=== PATIENT | male | born 1975 | race Caucasian/White ===

== ENCOUNTER 2017-03-04 18:08 | Inpatient (IN) ==
[2017-03-04] MEDS ORDERED: Vancomycin 1,500 MG in D5% in Water 250 ML IVPB ONE (19:35)
[2017-03-04] MEDS ORDERED: Piperacillin/Tazobactam 4.5 GM in D5% in Water (Mini-Bag+) 100 ML IVPB ONE (19:35)
[2017-03-04 19:49] LABS: Basophils % 0.1 %; Eosinophils % 0.1 %; Hematocrit 33.6 % (37.5-50.1); Hemoglobin 10.7 g/dL (12.9-16.9); Lymphocytes # 1.1 K/mcL (0.6-4.6); Lymphocytes % 6.5 %; Mean Corpuscular HGB Conc 31.8 g/dL (31.6-35.5); Mean Corpuscular Hemoglobin 28.5 pg (28.0-33.3); Mean Corpuscular Volume 89.4 fL (83.0-100.0); Monocytes # 1.1 K/mcL (0.0-1.3); Monocytes % 6.4 %; Neutrophils # 14.6 K/mcL (1.6-8.9); Platelet Count 455 K/mcL (140-400); Red Blood Count 3.76 M/mcL (4.19-5.50); Red Cell Distribution Width 14.2 % (11.5-14.5); Segmented Neutrophils % 85.9 %
[2017-03-04 19:55] LABS: INR 1.6; Prothrombin Time 17.9 Seconds (9.4-12.1)
[2017-03-04 19:57] LABS: Activated Partial Thrombo Time 35.5 Seconds (26.0-36.0)
[2017-03-04 20:02] LABS: BUN/Creatinine Ratio 10 (6-26); Blood Urea Nitrogen 10 mg/dL (8-26); Calcium 9.1 mg/dL (8.6-10.8); Carbon Dioxide 24 mEq/L (19-29); Chloride 98 mEq/L (98-109); Glucose 109 mg/dL (70-99); Osmolality,Calculated 274 (280-300); Potassium 4.2 mEq/L (3.5-4.5); Sodium 132 mEq/L (136-145); eGFR For African Americans > 60 (> 60); eGFR For Non-African Americans > 60 (> 60)
[2017-03-04] MEDS: 0.9 % Sodium Chloride 1,000 ML IVC SCH ×2 (20:08→22:10)
--- NOTE | 2017-03-04 20:30 | Emergency Department Note ---
Disposition Clinical Impression: Empyema lung Leukocytosis Qualifiers: Leukocytosis type: unspecified Qualified Code(s): D72.829 - Elevated white blood cell count, unspecified Anemia Qualifiers: Anemia type: unspecified type Qualified Code(s): D64.9 - Anemia, unspecified Disposition: Admitted As Inpatient Condition: Fair General Adult HPI - General Chief complaint: ED GI Bleed Stated complaint: coughing up blood// dark blood Time Seen by Provider: 03/04/17 19:02 Source: patient Limitations: no limitations Nursing Notes Reviewed: Yes Vital Signs Reviewed: Yes - History of Present Illness HPI Narrative: Patient was diagnosed with pneumonia about 5 weeks ago and started on Levaquin and I did review this record. He is not currently taking antibiotics but did have repeat CT scan on February 20 and this did show what looks like a loculated effusion. The patient is set to see pulmonary next week but came in today because he is now having hemoptysis. This occurred at home. It is blood- streaked and has not gross hemoptysis. He did not go to work today. He does have complaint of fever and this has been occurring intermittently for the last 5 weeks. He also has complaint of some lightheaded dizziness presently with coughing. He does have shortness of breath but this is not significantly changed. He denies any blurred vision, rhinorrhea. Does have intermittent sneezing. No blood in the urine or stool. No pain or numbness of the extremities, no skin rash or bruising of the skin. Social history: Nonsmoker, prior to his diagnosis of pneumonia 5 weeks ago is drinking between 2 and 6 beers per day. No drugs. Is here with his mother and the mother's Pain Scale: 0 - Related Data Home Medications Medication Instructions Recorded Confirmed No Known Home Drugs 03/04/17 03/04/17 Allergies Allergy/AdvReac Type Severity Reaction Status Date / Time Sulfa (Sulfonamide Allergy Hives Verified 03/04/17 18:47 Antibiotics) Review of Systems: He also has complaint of some lightheaded dizziness presently with coughing. He does have shortness of breath but this is not significantly changed. He denies any blurred vision, rhinorrhea. Does have intermittent sneezing. No blood in the urine or stool. No pain or numbness of the extremities, no skin rash or bruising of the skin. Past Medical History - Past Medical History Medical history: Reports: other Psychiatric history: Reports: no psych history - Social History Smoking Status: Never smoker Smokeless Tobacco Status: No Alcohol use: Reports: rarely Drug use: Reports: none Physical Exam CONSTITUTIONAL: Alert and oriented X3, well-nourished, well appearing, in no apparent distress HEAD: Normocephalic; atraumatic. EYES: PERRL, no scleral icterus. NOSE: The nose is normal in appearance without rhinorrhea RESP: Normal chest excursion with respiration; breath sounds clear and equal bilaterally; no wheezes, rhonchi, or rales CARD: Regular rhythm, without murmurs, rub or gallop ABD: Non-distended; non-tender, soft,without rigidity, rebound or guarding SKIN: Normal for age and race; warm and dry; no apparent lesions EXTREMITIES: Pulses are 2 plus and equal times 4 extremities, no peripheral edema or calf muscle pain. - General Limitations: no limitations General appearance: alert Course Vital Signs Temperature 103.0 F H 03/04/17 18:43 Pulse Rate 118 03/04/17 18:43 Respiratory Rate 18 03/04/17 18:43 Blood Pressure 159/94 03/04/17 18:43 O2 Sat by Pulse Oximetry 99 03/04/17 18:43 Temperature 103.0 F H 03/04/17 18:43 Pulse Rate 107 03/04/17 22:01 Respiratory Rate 14 03/04/17 22:55 Blood Pressure 139/80 03/04/17 22:55 O2 Sat by Pulse Oximetry 96 03/04/17 22:01 Oxygen Delivery Oxygen Delivery Room Air Medical Decision Making - [facility] Narrative Medical decision making narrative: The patient's symptoms are concerning in light of the CT scan from February 20. I will not repeat the CT today but would recommend consideration of interventional radiology consultation tomorrow for drainage and cultures. I did start the patient on broad-spectrum antibiotics with Zosyn and vancomycin. No history of intravenous drug use. I did review the labs showing elevated white blood cell count. Temperature here is 103 degrees. Ibuprofen and acetaminophen will be given. 2031 I did review the patient's labs and he does have leukocytosis. The patient is started on Zosyn and vancomycin and I did review his labs and second chest x- ray and I did speak with Dr. Agrawal from cardiothoracic who would like the patient admitted. No indication for surgical or interventional procedures tonight. CT scan can be done tonight or in the morning and they will follow this up tomorrow. We did do a CT scan tonight I did follow the results. Patient will be admitted. 2310 Did speak with hospitalist doctor who except the patient for admission 2313 - Medical Records Medical records reviewed: Yes I reviewed the patient's medical records. - Lab Data Lab results reviewed: Yes I reviewed the patient's lab results. Result diagrams: 03/04/17 19:37 03/04/17 19:37 Lab Results 03/04/17 03/04/17 03/04/17 Range/Units 19:37 19:37 19:37 WBC 17.0 H (4.3-11.1) K/mcL RBC 3.76 L (4.19-5.50) M/mcL Hgb 10.7 L (12.9-16.9) g/dL Hct 33.6 L (37.5-50.1) % MCV 89.4 (83.0-100.0) fL MCH 28.5 (28.0-33.3) pg MCHC 31.8 (31.6-35.5) g/dL RDW 14.2 (11.5-14.5) % Plt Count 455 H (140-400) K/mcL MPV 10.0 (9.4-12.4) fL Immature Gran % 1.0 (0-4) % Seg Neutrophils % 85.9 % Lymphocytes % 6.5 % Monocytes % 6.4 % Eosinophils % 0.1 % Basophils % 0.1 % Neutrophils # 14.6 H (1.6-8.9) K/mcL Lymphocytes # 1.1 (0.6-4.6) K/mcL Monocytes # 1.1 (0.0-1.3) K/mcL Eosinophils # 0.0 (0.0-0.6) K/mcL Basophils # 0.0 (0.0-0.2) K/mcL PT 17.9 H (9.4-12.1) Seconds INR 1.6 APTT 35.5 (26.0-36.0) Seconds Sodium 132 L (136-145) mEq/L Potassium 4.2 (3.5-4.5) mEq/L Chloride 98 (98-109) mEq/L Carbon Dioxide 24 (19-29) mEq/L BUN 10 (8-26) mg/dL Creatinine 0.98 (0.72-1.25) mg/dL Est GFR ( Amer) > 60 (> 60) Est GFR (Non-Af Amer) > 60 (> 60) BUN/Creatinine Ratio 10 (6-26) Glucose 109 H (70-99) mg/dL Calculated Osmolality 274 L (280-300) Lactic Acid (0.5-2.2) mmol/L Calcium 9.1 (8.6-10.8) mg/dL 03/04/17 Range/Units 19:37 WBC (4.3-11.1) K/mcL RBC (4.19-5.50) M/mcL Hgb (12.9-16.9) g/dL Hct (37.5-50.1) % MCV (83.0-100.0) fL MCH (28.0-33.3) pg MCHC (31.6-35.5) g/dL RDW (11.5-14.5) % Plt Count (140-400) K/mcL MPV (9.4-12.4) fL Immature Gran % (0-4) % Seg Neutrophils % % Lymphocytes % % Monocytes % % Eosinophils % % Basophils % % Neutrophils # (1.6-8.9) K/mcL Lymphocytes # (0.6-4.6) K/mcL Monocytes # (0.0-1.3) K/mcL Eosinophils # (0.0-0.6) K/mcL Basophils # (0.0-0.2) K/mcL PT (9.4-12.1) Seconds INR APTT (26.0-36.0) Seconds Sodium (136-145) mEq/L Potassium (3.5-4.5) mEq/L Chloride (98-109) mEq/L Carbon Dioxide (19-29) mEq/L BUN (8-26) mg/dL Creatinine (0.72-1.25) mg/dL Est GFR ( Amer) (> 60) Est GFR (Non-Af Amer) (> 60) BUN/Creatinine Ratio (6-26) Glucose (70-99) mg/dL Calculated Osmolality (280-300) Lactic Acid 1.1 (0.5-2.2) mmol/L Calcium (8.6-10.8) mg/dL - Radiology Data Radiology results reviewed: Yes I reviewed the patient's radiology results.
[2017-03-04] MEDS ORDERED: Ibuprofen 600 MG TABLET PO ONE ×2 (20:32→21:24)
--- NOTE | 2017-03-04 23:24 | Internal Med History&Physical ---
<Cornelio Jackman - Last Filed: 03/05/17 02:36> Date of Encounter: 03/05/17 Time of Encounter: 23:24 Assessment and Plan (1) Lung abscess Current visit: Yes Status: Acute As demonstrated on chest CT which showed interval enlargement as compared to 02/[address] surgery and interventional radiology for placement of chest tube; CT surgeon was already contacted while in ED Obtain pleural fluid studies including cell count w/ diff, gram stain/culture, pH Will start on Levaquin, Vancomycin, and Zosyn for broad coverage Sputum sample was collected but showed contaminants; will await blood cultures NPO at midnight, will support with IVF and oxygen/breathing treatments as needed Qualifiers: Pulmonary abscess pneumonia presence: with pneumonia Laterality: left Lung location: lower lobe of lung Qualified Code(s): J85.1 - Abscess of lung with pneumonia (2) Leukocytosis Current visit: Yes Status: Acute Secondary to infectious process as above Will support with IVF hydration and antibiotics Qualifiers: Leukocytosis type: unspecified Qualified Code(s): D72.829 - Elevated white blood cell count, unspecified (3) Anemia Current visit: Yes Status: Acute Secondary to hemoptysis in setting of lung abscess/possible empyema Hb of 10 upon admission; last visit was 15 No urgent need for transfusion at this time, but will type and screen Qualifiers: Anemia type: unspecified type Qualified Code(s): D64.9 - Anemia, unspecified (4) Alcohol abuse Current visit: Yes Status: Acute Start on CIWA protocol (5) DVT prophylaxis Current visit: Yes Status: Acute SCDs in setting of hemoptysis and anemia Internal Medicine - H&P: HPI Chief complaint: hemoptysis Admitted From: Home Plans for Post Hospital Care: Home History of present illness: Mr. Mccord is a 41 year old male who presents to the emergency department with hemoptysis and shortness of breath on exertion. He reports no significant medical history, and only takes a multivitamin. 5 weeks ago, he was diagnosed with community acquired pneumonia and completed a seven-day course of Levaquin. He states that he was feeling well up until yesterday when he developed hemoptysis, nausea, vomiting early in the morning. He states that there was a significant amount of blood was mixed with green sputum when he was coughing. He states that this happened again later in the day. Patient also reports having a fever that started earlier today and took his temperature at home which read 100.3. He denies any chest pain, lightheadedness, chills, diarrhea, constipation. 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 He denies any drug use other than marijuana and states that he drinks usually 2 beers a day after work, but has not drank in 2 weeks. Past Med Surg Social Fam HX - Past Medical History Medical history: other Psychiatric history: no psych history - Social History Smoking Status: Never smoker Smokeless Tobacco Status: No Alcohol use: rarely Drug use: none Internal Medicine - H&P: Meds No Known Home Drugs 03/04/17 [History] Allergies Sulfa (Sulfonamide Antibiotics) Allergy (Verified 03/04/17 18:47) Hives All Systems PM: A 10-system review of systems was performed and is negative for pertinent findings except as documented above in the HPI. - Constitutional Constitutional: fever(s), no chills, no night sweats - EENT Eyes: no change in vision, no discharge, no pain, no photophobia Ears: no ear discharge, no ear pain, no tinnitus Nose, mouth and throat: no dysphagia, no nasal discharge, no neck pain, no sore throat - Cardiovascular Cardiovascular ROS IM: dyspnea on exertion, no chest pain, no diaphoresis, no dyspnea, no lightheadedness, no palpitations, no syncope - Respiratory Respiratory: dyspnea on exertion, excessive phlegm production, change in phlegm color, no cough, no dyspnea, no wheezing - Gastrointestinal Gastrointestinal: diarrhea, nausea, vomiting, no abdominal pain, no hematemesis , no hematochezia, no melena - Musculoskeletal Musculoskeletal ROS IM: no numbness, no tingling - Integumentary Integumentary IM: no rash, no unusual bruising - Neurological Neurological ROS: no confusion, no convulsions, no focal weakness, no numbness, no tingling, no tremor(s) - Constitutional Vitals: Temp Pulse Resp BP Pulse Ox 103.0 F H 107 14 139/80 96 03/04/17 18:43 03/04/17 22:01 03/04/17 22:55 03/04/17 22:55 03/04/17 22:01 General appearance: Present: cooperative, pleasant, no acute distress, answers questions appropriately Exam: diaphoretic - Head Head exam: Present: atraumatic, normocephalic - Eye Eye exam: Present: PERRL, conjuntiva pink, sclera anicteric - Neck Neck exam general surgery: Present: supple, trachea midline. Absent: lymphadenopathy - Respiratory Respiratory exam: Present: decreased breath sounds (left lower lobe, with dullness to percussion). Absent: accessory muscle use, rales, rhonchi, wheezes - Cardiovascular Cardiovascular exam: Present: +S1, +S2, tachycardia (regular rhythm). Absent: diastolic murmur, gallop, rubs, systolic murmur - GI/Abdominal GI/Abdominal exam: Present: normal bowel sounds, soft, no peritoneal signs. Absent: distended, tenderness - Extremities Exam Extremities exam: Present: warm, radial pulses palpable and symetrical. Absent : calf tenderness, cyanotic, pedal edema - Neurological Exam Neurological exam: Present: alert, no focal deficits. Absent: facial droop, speech deficit - Skin Skin exam: Present: diaphoretic, intact Internal Med - H&P Results - Labs CBC & Chem 7: 03/04/17 19:37 03/04/17 19:37 <Zeeshan Pinon - Last Filed: 03/05/17 03:01> Date of Encounter: 03/05/17 Past Med Surg Social Fam HX - Past Surgical History Surgical History: no surgical history - Social History Occupational status: employed Current living situation: Home Activity Level: Independent ambulation - Additional Family History Additional family history: No FH of lung disease -- COPD, asthma, CF - Constitutional Constitutional: fatigue, fever(s) - EENT Nose, mouth and throat: no nasal congestion, no sinus pain - Cardiovascular Cardiovascular ROS IM: dyspnea on exertion, no chest pain, no edema - Respiratory Respiratory: hemoptysis (blood tinged sputum), dyspnea on exertion, chest congestion, excessive phlegm production, change in phlegm color - Genitourinary Genitourinary ROS male: no dysuria, no flank pain, no hematuria - Musculoskeletal Musculoskeletal ROS IM: no arthralgias, no atrophy, no back pain - Integumentary Integumentary IM: no rash - Neurological Neurological ROS: no focal weakness, no frequent falls - Psychiatric Psychiatric: no anxiety, no depression - Endocrine Endocrine IM: no cold intolerance, no heat intolerance - Hematologic/Lymphatic Hematologic/Lymphatic: no lymphadenopathy - Allergic/Immunologic Allergic/Immunologic: wheezing, no GI upset with certain foods - Constitutional Vitals: Temp Pulse Resp BP Pulse Ox 103.0 F H 84 14 139/80 96 03/04/17 18:43 03/05/17 00:58 03/04/17 22:55 03/04/17 22:55 03/04/17 22:01 General appearance: Present: cooperative, A&O X 3, pleasant, no acute distress, answers questions appropriately - Head Head exam: Present: normal inspection - Eye Eye exam: Present: PERRL. Absent: scleral icterus - ENT ENT exam: Present: mucous membranes dry, normal exam - Neck Neck exam general surgery: Present: full ROM, supple. Absent: tenderness - Respiratory Respiratory exam: Present: decreased breath sounds, rales (faint crackles right base). Absent: chest wall tenderness, prolonged expiratory phase, respiratory distress - Cardiovascular Cardiovascular exam: Present: RRR, +S1, +S2. Absent: diastolic murmur, systolic murmur - GI/Abdominal GI/Abdominal exam: Present: soft. Absent: hepatomegaly, splenomegaly, tenderness - Extremities Exam Extremities exam: Present: full ROM. Absent: calf tenderness - Back Exam Back exam: Present: full ROM. Absent: CVA tenderness (L), CVA tenderness (R) - Neurological Exam Neurological exam: Present: alert, oriented X3, no focal deficits - Psychiatric Psychiatric exam: Present: normal affect, normal mood - Skin Skin exam: Present: warm. Absent: rash Internal Med - H&P Results - Labs CBC & Chem 7: 03/04/17 19:37 03/04/17 19:37 - Diagnostic Studies Chest x-ray Status: image reviewed by me (LLL effusion with air-fluid level) CT scan - chest Status: image reviewed by me (left lower lung abscess) - Attending Attestation I discussed the TANANA, PMH, ROS, lab data, and exam findings with Dr. Jackman. I then saw and examined patient independently as well. I discussed the patient with ER staff at length prior to our assessments. I requested CT of chest with possible thoracentesis and/or chest tube in ER. I reviewed CT findings with ER and ER staff discussed with CT surgery (Dr. Agrawal). Dr. Agrawal will see patient this morning and recommended chest tube placement per IR later today. Upon my assessment of patient, his fevers have deferevesced, and he feels much better. I personally reviewed his CXR and CT chest. He has a lung abscess and/ or locluated effusion. He will likely need intervention with chest tube and possibly further thoracic surgery thereafter. He has failed outpatient therapy and warrants inpatient admission. Blood cultures have been collected, but his sputum sample is contaminated. We will request pleural fluid be sent for microbiology studies as well as routine analysis. Once an organism is isolated on culture results and patient improves, we will de-escalate antibiotics. Given his history of alcohol use and possible abuse, I am concerned about aspiration. However, his abscess is in his left lung and less suggestive of an aspiration process. I agree with [facility] protocol to monitor for possible withdrawal. Other than my comments noted above and exam findings, I agree with Dr. Jackman's assessment and plan.
[2017-03-04] MEDS ORDERED: Naloxone 0.4 MG/ML INJ IVP PRN (23:44)
[2017-03-04] MEDS ORDERED: Acetaminophen 325 MG TABLET PO PRN (23:44)
[2017-03-04] MEDS ORDERED: Ondansetron ODT 4 MG TAB.RAPDIS SL PRN (23:44)
[2017-03-04] MEDS ORDERED: Vancomycin 1,500 MG in D5% in Water 250 ML IVPB SCH (23:45)
[2017-03-04] MEDS ORDERED: 0.9 % Sodium Chloride 1,000 ML IVC SCH (23:45)
[2017-03-04] MEDS ORDERED: Ipratropium/Albuterol Neb 3 ML IH PRN (23:59)
[2017-03-05] MEDS ORDERED: *HR* LORazepam 2 MG/ML VIAL IVP PRN ×3 (02:33)
[2017-03-05] MEDS: Piperacillin/Tazobactam 3.375 GM in D5% in Water (Mini-Bag+) 100 ML IVPB SCH ×3 (03:40→23:08)
[2017-03-05 05:36] LABS: Basophils % 0.1 %; Eosinophils % 0.1 %; Hematocrit 30.7 % (37.5-50.1); Immature Granulocytes % 1.1 % (0-4); Lymphocytes # 1.3 K/mcL (0.6-4.6); Lymphocytes % 8.2 %; Mean Corpuscular HGB Conc 32.6 g/dL (31.6-35.5); Mean Corpuscular Hemoglobin 29.3 pg (28.0-33.3); Mean Platelet Volume 10.1 fL (9.4-12.4); Monocytes # 1.1 K/mcL (0.0-1.3); Monocytes % 6.8 %; Neutrophils # 13.3 K/mcL (1.6-8.9); Platelet Count 368 K/mcL (140-400); Red Blood Count 3.41 M/mcL (4.19-5.50); Red Cell Distribution Width 14.5 % (11.5-14.5); Segmented Neutrophils % 83.7 %
[2017-03-05 05:54] LABS: BUN/Creatinine Ratio 10 (6-26); Blood Urea Nitrogen 9 mg/dL (8-26); Calcium 8.7 mg/dL (8.6-10.8); Carbon Dioxide 26 mEq/L (19-29); Chloride 105 mEq/L (98-109); Glucose 102 mg/dL (70-99); Osmolality,Calculated 285 (280-300); Potassium 4.4 mEq/L (3.5-4.5); Sodium 138 mEq/L (136-145); eGFR For African Americans > 60 (> 60); eGFR For Non-African Americans > 60 (> 60)
--- NOTE | 2017-03-05 08:44 | Cardiothoracic Consult Note ---
Date of Encounter: 03/05/17 Time of Encounter: 08:41 Assessment and Plan (1) Lung abscess Current Visit: Yes Status: Acute The patient is a 41-year-old otherwise healthy man with a two-month history of a left lower lobe pneumonia. Initially he was treated with oral antibiotics for one week and had improvement of his symptoms. Unfortunately, the symptoms recurred approximately 2 weeks ago and yesterday the patient experienced hemoptysis. A repeat chest x-ray revealed a worsening left lower lobe infiltrative process and the chest CT revealed a large left lower lobe thick- walled abscess. The patient has been admitted for antibiotic therapy. Concur with this recommendation. Currently, there is no indication for operative intervention, unless the patient undergoes a transbronchial abscess drainage procedure. Placement of a chest tube into the abscess will cause an empyema if appearing material cannot be completely drained. I would refrain from this procedure and give the antibiotic therapy time to resolve the process. He should have serial chest x-rays to monitor his progress. The assessment and plan as outlined above was discussed with the patient and/or family members who expressed understanding and agreement. All questions were answered. Qualifiers: Pulmonary abscess pneumonia presence: with pneumonia Laterality: left Lung location: lower lobe of lung Qualified Code(s): J85.1 - Abscess of lung with pneumonia - History of Present Illness Consult date: 03/04/17 Requesting physician: Zeeshan Pinon Consult reason: Left lower lobe lung abscess Chief complaint: Fever and hemoptysis History of present illness: Mr. Mccord is a 41 year otherwise healthy man who developed a community- acquired pneumonia on January 27, 2017. Initially, patient complained of left posterior back pain and thought that he had fractured a rib. He was evaluated at an urgent care facility and the x-ray revealed a left lower lobe infiltrative process. The patient was placed on oral antibiotics for one week and had improvement of the symptoms. However, the patient redeveloped fevers approximately 2 weeks ago and yesterday began experiencing hemoptysis. This was described as blood mixed with green sputum. He was evaluated at [facility] or he was found to have a worsening left lower lobe infiltrative process. A chest CT revealed a large left lower lobe abscess with no apparent communication with the left pleural space. He was admitted for intravenous antibiotic therapy. Past Med Surg Social Fam HX - Past Medical History Medical history: other (Left lower lobe pneumonia.) Psychiatric history: no psych history - Past Surgical History Surgical History: other (Excision of right groin cyst.) - Social History Smoking Status: Never smoker Smokeless Tobacco Status: No Alcohol use: rarely Drug use: none Occupational status: employed Current living situation: Home - Independent Activity Level: Independent ambulation Recent Out of Country Travel Within the Last 8 Weeks: No Exposure or Possible Exposure to Illness During Travel: No Medications and Allergies No Known Home Drugs 03/04/17 [History] Allergies Sulfa (Sulfonamide Antibiotics) Allergy (Verified 03/04/17 18:47) Hives All Systems Review: A 10-system review of systems was performed and is negative for pertinent findings except as documented above in the HPI. Physical Examination Vital Signs, Last 4 Hours Temp Pulse Resp BP Pulse Ox 03/05/17 07:44 98.2 F 96 16 147/91 98 General: Conversant, No Apparent Distress HEENT: Atraumatic, Normocephaly, Trachea midline Neck: No JVD, Normal carotid pulses Cardiac: Reg Rate and Rhythm, Normal S1 and S2, No Murmur Lungs: Normal Breath Sounds (Right lung alexander.), Decreased breath sounds (Left lower base, posteriorly.) Neuro: Alert and responsive, No focal deficits noted Vascular: Normal capillary refill Abdomen: Soft, Non-tender Skin: No rashes noted on visualized skin Musculoskeletal: No Chest Wall Tenderness Extremities: No Clubbing, No Cyanosis, No Edema, Normal Pulses Results 03/05/17 05:15 03/05/17 05:15 Lab Results, Last 24 hours 03/05/17 03/05/17 05:15 05:15 WBC 15.9 H Hgb 10.0 L Hct 30.7 L Plt Count 368 Sodium 138 Potassium 4.4 Chloride 105 Carbon Dioxide 26 BUN 9 Creatinine 0.92 Glucose 102 H Calcium 8.7 - Imaging Chest Xray: image reviewed (Left lower lobe infiltrate.) Consult Discharge Plan - Plan Referrals: Richard Blanca DO [Primary Care Provider] -
[2017-03-05] MEDS: Levofloxacin 750 MG/150 ML 750 MG/150 ML BAG IVPB SCH (09:08)
[2017-03-05] MEDS: Vancomycin 1,500 MG in D5% in Water 250 ML IVPB SCH ×2 (10:57→21:23)
[2017-03-05] MEDS ORDERED: Albuterol 2.5 MG/3 ML NEBULIZER IH ONE (12:59)
[2017-03-05] MEDS ORDERED: Tetracaine/Benzocaine/Butamben 200MG/SPRAY (100SPY/BOT) MM ONE (12:59)
[2017-03-05] MEDS ORDERED: *HR* EPINEPHrine 1 MG/10 ML SYRINGE INTRATRACH PRN (12:59)
[2017-03-05] MEDS ORDERED: Lidocaine Viscous Oral Soln 15 ML SOLUTION MM ONE (12:59)
--- NOTE | 2017-03-05 13:01 | Pre-Sedation Evaluation ---
Pre-sedation evaluation - Pre-sedation checklist Date of procedure: 03/05/17 Procedure: Bronchoscopy Recent Vitals: Last Vital Signs Temp 98.3 F 03/05/17 11:46 Pulse 93 03/05/17 11:46 Resp 16 03/05/17 11:46 BP 142/89 03/05/17 11:46 Pulse Ox 97 03/05/17 11:46 Dietary Status: NPO after Midnight Airway Assessment: Patient can open mouth completely, TMJ function normal Possible difficult airway: No ASA Classification *see protocol: CLASS II-Mild systemic disease Plan of Care: Pt appropriate candidate for procedure/moderate/conscious sedation , Risks/benefits of procedure/sedation discussed w/ patient/family
[2017-03-05] MEDS: 0.9 % Sodium Chloride 1,000 ML IVC SCH (13:27)
[2017-03-05] MEDS: *HR* Midazolam HCl 5 MG/5 ML VIAL IVP PRN ×3 (13:30→13:49)
[2017-03-05] MEDS: *HR* FentaNYL (PF) 100 MCG/2 ML VIAL IVP PRN ×3 (13:32→13:42)
[2017-03-05 14:45] LABS: Source of Body Fluid LLL BAL
--- NOTE | 2017-03-05 15:44 | Pulmonology Consult Note ---
Date of Encounter: 03/05/17 Time of Encounter: 12:45 Assessment and Plan (1) Cough with hemoptysis Current Visit: Yes Status: Acute This is most likely secondary to his pneumonia and bronchoscopy recommended with all the risks, alternative, and benefits of the procedure in the presence of the nurse and his mother at the bedside. Clearly patient needs broad- spectrum antibiotics and consider infectious disease consult dictation. I suspect patient will need long-term antibiotics. (2) Lung abscess Current Visit: Yes Status: Acute I discussed with Dr. Rivera and degree with recommendations. Antibiotics would be the main treatment at this time and with bronchoscopy, hopefully will be helpful to tailor antibiotics of choice. Thank you very much for allowing us participate in in the care for this very pleasant gentleman. Qualifiers: Pulmonary abscess pneumonia presence: with pneumonia Laterality: left Lung location: lower lobe of lung Qualified Code(s): J85.1 - Abscess of lung with pneumonia History of Present Illness Consult date: 03/05/17 Requesting physician: Zeeshan Pinon Reason for consult: pneumonia, other (Hemoptysis) Chief complaint: Hemoptysis History of present illness: This is very pleasant 41-year-old male presented to emergency department with hemoptysis and this is mainly when he cough with mostly somewhat fresh blood and also shortness of breath. Patient denies any history of tuberculosis or exposure to patient with tuberculosis. About 5 weeks ago he was diagnosed with community acquired pneumonia and he completed antibiotic course for 7 days Levaquin. Patient was feeling fine, but about 2 days ago he started to have nausea, vomiting and hemoptysis. He also reports fever with temperature at home and denies any chest pain or chills and he has some weight loss. Patient denies any occupational exposure and there is no history of lung cancer. There is a family history of vasculitis of the lungs with Paulino's disease. Patient had CT chest which was very abnormal and pulmonary was consulted for that reason. Past Med Surg Social Fam HX - Past Medical History Medical history: other (Left lower lobe pneumonia.) Psychiatric history: no psych history - Past Surgical History Surgical History: other (Excision of right groin cyst.) - Social History Smoking Status: Never smoker Smokeless Tobacco Status: No Alcohol use: rarely Drug use: none Medications and Allergies No Known Home Drugs 03/04/17 [History] Allergies Sulfa (Sulfonamide Antibiotics) Allergy (Verified 03/04/17 18:47) Hives All Systems: A 10-system review of systems was performed and is negative for pertinent findings except as documented above in the HPI. Physical Examination Vital Signs: Vital Signs, Last 4 Hours Temp Pulse Resp BP Pulse Ox 03/05/17 13:50 98.9 F 120 16 121/62 93 03/05/17 13:45 98.9 F 118 16 146/90 95 03/05/17 13:40 98.9 F 118 16 152/116 95 03/05/17 13:35 98.9 F 103 16 148/91 96 03/05/17 13:21 98.9 F 100 18 147/85 99 03/05/17 13:18 98.9 F 100 18 147/85 99 03/05/17 12:00 98 03/05/17 11:46 98.3 F 93 16 142/89 97 General appearance: other (It appears acutely ill) Eyes: nonicteric ENT: oropharynx moist Mallampati (class): 2 Neck: supple, no lymphadenopathy Effort: mildly labored Inspection: normal Auscultation: left: diminished breath sounds, right: clear Percussion: left: dull, right: not dull Cardiovascular: regular rate and rhythm Gastrointestinal: normoactive bowel sounds, non-distended Integumentary: normal Extremities: no cyanosis, no edema normal mental status, non-focal exam mood appropriate Results - Laboratory Findings CBC and BMP: 03/05/17 05:15 03/05/17 05:15 PT/INR, D-dimer PT 17.9 Seconds (9.4-12.1) H 03/04/17 19:37 Abnormal lab findings: Abnormal lab results WBC 15.9 K/mcL (4.3-11.1) H 03/05/17 05:15 RBC 3.41 M/mcL (4.19-5.50) L 03/05/17 05:15 Hgb 10.0 g/dL (12.9-16.9) L 03/05/17 05:15 Hct 30.7 % (37.5-50.1) L 03/05/17 05:15 Neutrophils # 13.3 K/mcL (1.6-8.9) H 03/05/17 05:15 PT 17.9 Seconds (9.4-12.1) H 03/04/17 19:37 Glucose 102 mg/dL (70-99) H 03/05/17 05:15 - Diagnostic Findings CT scan - chest: report reviewed, image reviewed - Clinical Findings Intake & Output: Intake & Output 03/04/17 03/05/17 03/05/17 23:59 07:59 15:59 Intake Total 1100 / 1100 Output Total 1300 / 1300 Balance -1300 / -1300 1100 / 1100 Weight 99.6 kg Consult Discharge Plan - Plan Referrals: Richard Blanca DO [Primary Care Provider] - (Dr. Blanca's office will not make appointments for us the Patient has to call and make their own.) Micky Rivera MD [Partnered Physician] - 04/08/17 1:00 pm
[2017-03-05 15:53] LABS: Appearance of Body Fluid Slightly Hazy (Clear); Volume of Body Fluid 15 mL
--- NOTE | 2017-03-05 16:20 | Event Note ---
Date of Encounter: 03/05/17 Time of Encounter: 11:30 41 yo male with past medical history of alcohol abuse who was diagnosed of CAP 5 weeks ago, and completed a seven-day course of levaquin. He was doing fine until yesterday when he developed hemoptysis and yellowish sputum. In our ED, temp was 103, hr 118, wbc 17. CT chest shows a large thick walled oval-shaped abcess in the posteroinferior left hemithorax likely and abscess vs loculated empyema. Patient denies any recent travel, no tobacco use, no sick contacts. 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 A/P: 1. Sepsis 2. left Lung abscess. 3. alcohol use. Appreciate CTS team input. Plan for Pulmonology consult and bronchoscopy. ID consult. continue empiric IV vancomycin, Zosyn and levaquin. IV fluids. cultures pending. CIWA protocol.
--- NOTE | 2017-03-05 16:53 | Infectious Disease Consult ---
Date of Encounter: 03/05/17 Time of Encounter: 16:47 Assessment and Plan (1) Sepsis Status: Acute Assessment and plan: The patient had three SIRS criteria on admission. Likely secondary to PNA and lung abscess. Improved. The patient has been afebrile. He continues to have tachycardia. Leukocytosis is trending down. Blood cultures drawn 03/04/17 are pending x 2 sets. Qualifiers: Sepsis type: sepsis due to unspecified organism Qualified Code(s): A41.9 - Sepsis, unspecified organism (2) Lung abscess Status: Acute Assessment and plan: Causative organism unclear. Likely secondary to recent PNA. CXR showed increasing opacity in the inferior left hemithorax representing a combination of worsening left lower lobe pneumonia and adjacent loculated pleural disease. A small air-fluid level suggesting an abscess was noted. Developing empyema cannot be excluded. A CT of the chest was then completed that showed a large thick-walled oval- shaped abscess in the posterior inferior left hemithorax that appears to be within the parenchyma of the left lower lobe representing a lung abscess as a complication of the previously noted pneumonia. Extension into the pleural space with loculated empyema could not be excluded. Cardiothoracic surgery was consulted. Appreciate their recommendations. Surgical intervention is not indicated at this time. Recommend continued IV antibiotic therapy. Sputum culture obtained in the ER appears contaminated. Pulmonology team was consulted. Status post bronchoscopy today. Endoscopy for reviewed. Large amount of mucopurulent secretions and mucous plugging noted. Erythema noted to the lower lobe of the left lung mucosa. BAL sent for culture, Gram stain, and AFB are currently pending. Etiology of persistent PNA remains unclear. Patient has no indication of immunosuppression or history of high-risk behaviors. The patient does have a history of daily ETOH use, but denies drinking excessively to the point that he passes out that would indicate possible aspiration as a cause. Check HIV and Hepatitis profile. Check S. pneumo and Legionella UAT. Await culture results. Continue Levaquin 750mg IV daily. Continue Vancomycin IV. Pharmacy to dose. Goal trough approximately 15. Continue Zosyn 3.375 grams IV Q8H. Duration of treatment depends on the clinical picture. Monitor renal function and for drug toxicity and dose-adjust antibiotics. Qualifiers: Pulmonary abscess pneumonia presence: with pneumonia Laterality: left Lung location: lower lobe of lung Qualified Code(s): J85.1 - Abscess of lung with pneumonia (3) Pneumonia Status: Acute Assessment and plan: Causative organism unclear. Status post bronch. Await cultures. Continues antibiotics as above. Qualifiers: Pneumonia type: due to unspecified organism Laterality: left Lung location: lower lobe of lung Qualified Code(s): J18.1 - Lobar pneumonia, unspecified organism (4) Cough with hemoptysis Status: Acute Assessment and plan: Likely secondary to PNA. Pulmonology consulted and following. (5) Anemia Status: Acute Assessment and plan: Etiology unclear. Not sure that the patient's hemoptysis was enough to cause the patient to be anemic. Further workup and management per the primary team. Qualifiers: Anemia type: unspecified type Qualified Code(s): D64.9 - Anemia, unspecified (6) Alcohol abuse Status: Chronic Infectious Disease HPI - Data of Consult Patient: new to practice Consult date: 03/05/17 Requesting Physician: Sunitha Cristobal Primary Care Provider: Richard Blanca - Consult Narrative Reason for consult: Lung abscess History of present illness: Mr. Mccord is a 41 year old male with no real past medical history. The patient was admitted to the hospital March 04 for hemoptysis and pneumonia. We are consulted March 05 for further evaluation and treatment recommendations regarding lung abscess. The patient's a 41-year-old male with past medical history as stated above. The patient was treated about 5 weeks ago for pneumonia with a 12 day course of Levaquin. He states that overall he improved and was in his usual state of health until 2 days ago when he began to experience nausea and vomiting and overall malaise. He states he did have one episode of hemoptysis on Wednesday, and then again had another episode of hemoptysis yesterday which prompted his arrival to the emergency department. Upon arrival, the patient was afebrile with temperature 103. He is tachycardic and have leukocytosis with neutrophilic predominance. A chest x-ray was completed that showed increased opacity in the inferior left hemithorax representing worsening left lower lobe pneumonia and an adjacent loculated pleural effusion. There is also a small air-fluid level consistent with lung abscess. A CT of the chest was completed that showed a thick-walled oval-shaped abscess posterior/inferior of the left hemithorax in the parenchyma of the left lower lobe consistent with lung abscess as a complication of previously noted pneumonia. Findings did not exclude an empyema. The patient was started on empiric IV vancomycin and Zosyn. Blood cultures were obtained 2 sets. A sputum culture was obtained that appears contaminated. The patient was admitted for further evaluation and treatment. [place] thoracic surgery has been consulted and states that the best course of action for this patient's infection is antibiotic therapy. Pulmonology team has been consulted and the patient underwent a bronchoscopy earlier today that showed a large amount of mucopurulent secretions and mucous plugging as well as an erythematous mucosa of the left lower lobe. Bronchial washings were obtained and are pending for culture, AFB, and Gram stain. The patient's leukocytosis has improved. He has been afebrile overnight. He continues to have tachycardia. He states that he has not had any more luis hemoptysis today. He reports some mild shortness of breath, mainly with exertion. He denies any headache or neck pain. He denies any recent congestion, earache, or sore throat. He denies any chest pain at this time. He reports 1 episode of vomiting after he ate fast food the other night, but denies any since then. He states there has not had any abdominal pain or appetite changes. He denies any skin lesions or oral thrush. The patient denies any occupational exposure that could be contributing to his symptoms. He does report that up until about 3 weeks ago he would drink 2-3 beers every morning after getting off work, but states he stopped doing that when he was taking antibiotics. He denies drinking until he passes out or any known aspiration events. He denies any tobacco or illicit drug use. Denies any recent travel outside the [facility]. CC: Sunitha Cristobal Past Med Surg Social Fam HX - Past Medical History Attestation: Yes The following information was validated with the patient. Source: old records reviewed, nursing notes reviewed Medical history: other (Left lower lobe pneumonia.) Psychiatric history: no psych history - Past Surgical History Surgical History: other (Excision of right groin cyst.) - Social History Smoking Status: Never smoker Smokeless Tobacco Status: No Alcohol use: rarely Drug use: none Occupational status: employed Current living situation: Home - Independent Activity Level: Independent ambulation Recent Out of Country Travel Within the Last 8 Weeks: No Exposure or Possible Exposure to Illness During Travel: No Infectious Disease-CN:Meds No Known Home Drugs 03/04/17 [History] Allergies Sulfa (Sulfonamide Antibiotics) Allergy (Verified 03/04/17 18:47) Hives All systems: reviewed and no additional remarkable complaints except as stated Exam - Constitutional Vitals: Temp Pulse Resp BP Pulse Ox 99.2 F 108 16 142/77 95 03/05/17 16:32 03/05/17 16:32 03/05/17 16:32 03/05/17 16:32 03/05/17 16:32 General appearance: average body habitus, cooperative, no acute distress - Head Head exam: Present: atraumatic, normal inspection, normocephalic - Eye Eye exam: Present: EOMI, normal appearance, PERRL Pupils: Present: normal accommodation - ENT ENT exam: Present: mucous membranes moist - Neck Neck exam: Present: normal inspection - Respiratory Respiratory exam: Present: CTAB. Absent: rales, respiratory distress, rhonchi, wheezes - Cardiovascular Cardiovascular exam: Present: RRR, +S1, +S2 - GI/Abdominal GI/Abdominal exam: Present: normal bowel sounds, soft. Absent: distended, tenderness - Extremities Exam Extremities exam: Present: normal inspection. Absent: joint swelling, pedal edema, tenderness - Neurological Exam Neurological exam: Present: alert, oriented X3, no focal deficits - Psychiatric Psychiatric exam: Present: normal affect, normal mood - Skin Skin exam: Present: dry, intact, normal color, warm Infectious Disease CN: Results - Labs CBC & Chem 7: 03/08/17 04:03 03/08/17 04:03 Cultures: Cultures 03/05/17 14:00 Gram Stain - Preliminary Left Lower Lobe Lung Serology: Serology 03/05/17 Range/Units 14:00 Fluid Source LLL BAL Fluid Volume 15 mL Fluid Appearance Slightly Hazy A (Clear) Fluid RBC TNP Fld Tot Nucleated Cell TNP Fluid Seg Neutrophil % 98.0 % Fluid Basophils % 2.0 % Consult Discharge Plan - Plan Referrals: Richard Blanca DO [Primary Care Provider] - (Dr. Blanca's office will not make appointments for us the Patient has to call and make their own.) Aury Dhillon MD [Partnered Physician] - 03/15/17 2:00 pm Micky Rivera MD [Partnered Physician] - 04/08/17 1:00 pm
--- NOTE | 2017-03-05 17:23 | Electrocardiograph Report ---
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
[2017-03-06] MEDS: Piperacillin/Tazobactam 3.375 GM in D5% in Water (Mini-Bag+) 100 ML IVPB SCH ×3 (06:17→20:31)
[2017-03-06 06:21] LABS: Basophils % 0.1 %; Eosinophils # 0.1 K/mcL (0.0-0.6); Eosinophils % 0.3 %; Hematocrit 32.7 % (37.5-50.1); Hemoglobin 10.5 g/dL (12.9-16.9); Immature Granulocytes % 1.1 % (0-4); Lymphocytes # 1.5 K/mcL (0.6-4.6); Lymphocytes % 9.8 %; Mean Corpuscular HGB Conc 32.1 g/dL (31.6-35.5); Mean Corpuscular Hemoglobin 28.9 pg (28.0-33.3); Mean Corpuscular Volume 90.1 fL (83.0-100.0); Mean Platelet Volume 10.3 fL (9.4-12.4); Monocytes # 0.9 K/mcL (0.0-1.3); Monocytes % 6.1 %; Neutrophils # 12.5 K/mcL (1.6-8.9); Platelet Count 451 K/mcL (140-400); Red Blood Count 3.63 M/mcL (4.19-5.50); Red Cell Distribution Width 14.6 % (11.5-14.5); Segmented Neutrophils % 82.6 %
[2017-03-06 06:39] LABS: Alanine Aminotransferase 29 Units/L (0-55); Albumin 2.2 g/dL (3.5-5.0); Albumin/Globulin Ratio 0.4 (1.1-2.2); Alkaline Phosphatase 117 Units/L (38-126); Aspartate Amino Transferase 22 Units/L (5-34); BUN/Creatinine Ratio 8 (6-26); Bilirubin,Direct 0.3 mg/dL (0.0-0.5); Bilirubin,Indirect 0.4 mg/dL (0.0-1.2); Bilirubin,Total 0.7 mg/dL (0.2-1.2); Blood Urea Nitrogen 8 mg/dL (8-26); Calcium 9.1 mg/dL (8.6-10.8); Carbon Dioxide 28 mEq/L (19-29); Chloride 103 mEq/L (98-109); Globulin 5.4 g/dL (2.4-3.5); Glucose 91 mg/dL (70-99); Osmolality,Calculated 286 (280-300); Potassium 4.1 mEq/L (3.5-4.5); Sodium 139 mEq/L (136-145); Total Protein 7.6 g/dL (6.0-8.3); eGFR For African Americans > 60 (> 60); eGFR For Non-African Americans > 60 (> 60)
--- NOTE | 2017-03-06 07:40 | Cardiothoracic Progress Note ---
Date of Encounter: 03/06/17 Time of Encounter: 07:38 - Assessment and plan (1) Lung abscess Current Visit: Yes Status: Acute The patient underwent fiberoptic bronchoscopy with lavage yesterday. The specimen revealed evidence of bacteria. He is covered with broad-spectrum antibiotics currently. The assessment and plan as outlined above was discussed with the patient and/or family members who expressed understanding and agreement. All questions were answered. Qualifiers: Pulmonary abscess pneumonia presence: with pneumonia Laterality: left Lung location: lower lobe of lung Qualified Code(s): J85.1 - Abscess of lung with pneumonia - Subjective Interval history: The patient is resting comfortably in his hospital bed. He had some coughing episodes earlier this morning with blood-tinged sputum production. The coughing has since resolved. He has no other complaints. Vital Signs, Last 4 Hours Temp Pulse Resp BP Pulse Ox 03/06/17 07:36 98.4 F 94 18 140/92 96 Oxgy[place] Flow Rate Oxygen Flow Rate (LPM) 0 Clinical Data, last 8 Hours Output, Urine Amount 380 Weight 03/04/17 03/05/17 03/06/17 23:59 23:59 23:59 Weight 99.6 kg 99 kg - Physical Examination General: Conversant, No Apparent Distress Neck: No JVD, Normal carotid pulses Cardiac: Reg Rate and Rhythm, Normal S1 and S2, No Murmur Incision: Dry/intact dressing Lungs: Normal Breath Sounds (Right lung alexander.), Decreased breath sounds (Left lung alexander.), No Wheeze, Rales, Rhonchi (Right lung alexander.) Neuro: Alert and responsive, No focal deficits noted Musculoskeletal: No Chest Wall Tenderness Extremities: No Clubbing, No Cyanosis, No Edema, Normal Pulses - Labs 03/06/17 05:09 03/06/17 05:09 Lab Results, Last 24 hours 03/06/17 03/06/17 05:09 05:09 WBC 15.2 H Hgb 10.5 L Hct 32.7 L Plt Count 451 H Sodium 139 Potassium 4.1 Chloride 103 Carbon Dioxide 28 BUN 8 Creatinine 0.96 Glucose 91 Calcium 9.1 Magnesium 2.0 Total Bilirubin 0.7 AST 22 ALT 29 Alkaline Phosphatase 117 Consult Discharge Plan - Plan Referrals: Richard Blanca DO [Primary Care Provider] - (Dr. Blanca's office will not make appointments for us the Patient has to call and make their own.) Micky Rivera MD [Partnered Physician] - 04/08/17 1:00 pm
--- NOTE | 2017-03-06 09:35 | Pulmonology Progress Note ---
Date of Encounter: 03/06/17 Time of Encounter: 09:31 Assessment and Plan (1) Empyema lung Current Visit: Yes Status: Acute Patient is improving with antimicrobial therapy for treatment of left lung abscess. Bronchoscopy revealed patency of the bronchus and therefore, antibiotic therapy should suffice however the patient may require a somewhat protracted course of treatment. Recommend adjusting antibiotics dependent upon the results of cultures. If no dominant organism is identified then the patient could be switched to Unasyn completing a seven-day day course IV and then ultimately switching to amoxicillin for several weeks. Obviously, the patient will require outpatient reevaluation in order to ensure clearance of the lung abscess. Please call if you have any questions. E Zari [phone]. Code(s): J86.9 - Pyothorax without fistula SNOMED Code(s): 185567630 Subjective Principal diagnosis: Lung abscess Interval history: Patient notes an overall improvement in his general sense of well-being. He continues to cough and expectorate purulent iggy sputum. He denies any other complaints from review of systems. Objective PUL Vital signs: Last Vital Signs Temp 98.4 F 03/06/17 07:36 Pulse 94 03/06/17 07:57 Resp 18 03/06/17 07:36 BP 140/92 03/06/17 07:36 Pulse Ox 96 03/06/17 07:36 General appearance: no acute distress ENT: oropharynx moist Neck: supple Effort: normal Auscultation: left: diminished breath sounds, bilateral: clear Cardiovascular: regular rate and rhythm Gastrointestinal: normoactive bowel sounds, non-distended Extremities: no cyanosis Musculoskeletal: no deformities Gait: normal gait normal mental status, non-focal exam mood appropriate Results - Laboratory Findings CBC and BMP: 03/06/17 05:09 03/06/17 05:09 PT/INR, D-dimer PT 17.9 Seconds (9.4-12.1) H 03/04/17 19:37 Abnormal lab findings: Abnormal lab results WBC 15.2 K/mcL (4.3-11.1) H 03/06/17 05:09 RBC 3.63 M/mcL (4.19-5.50) L 03/06/17 05:09 Hgb 10.5 g/dL (12.9-16.9) L 03/06/17 05:09 Hct 32.7 % (37.5-50.1) L 03/06/17 05:09 RDW 14.6 % (11.5-14.5) H 03/06/17 05:09 Plt Count 451 K/mcL (140-400) H 03/06/17 05:09 Neutrophils # 12.5 K/mcL (1.6-8.9) H 03/06/17 05:09 PT 17.9 Seconds (9.4-12.1) H 03/04/17 19:37 Albumin 2.2 g/dL (3.5-5.0) L 03/06/17 05:09 Globulin 5.4 g/dL (2.4-3.5) H 03/06/17 05:09 Albumin/Globulin Ratio 0.4 (1.1-2.2) L 03/06/17 05:09 Fluid Appearance Slightly Hazy (Clear) A 03/05/17 14:00 - Microbiology Findings Microbiology Findings: Microbiology, Last 48 Hours 03/05/17 14:00 Respiratory Culture - Preliminary Left Lower Lobe Lung No growth. 03/05/17 14:00 Respiratory Culture - Preliminary Left Lower Lobe Lung No growth. 03/05/17 21:25 Legionella Antigen - Final Urine,Random-Not Preferred Streptococcus pneumoniae Antigen (M - Final 03/05/17 14:00 Gram Stain - Preliminary Left Lower Lobe Lung - Clinical Findings Intake & Output: Intake & Output 03/05/17 03/06/17 03/06/17 23:59 07:59 15:59 Intake Total 590 / 590 100 / 100 Output Total 1400 / 1400 380 / 380 Balance -810 / -810 -280 / -280 Weight 99 kg Consult Discharge Plan - Plan Referrals: Richard Blanca DO [Primary Care Provider] - (Dr. Blanca's office will not make appointments for us the Patient has to call and make their own.) Micky Rivera MD [Partnered Physician] - 04/08/17 1:00 pm
[2017-03-06] MEDS: Levofloxacin 750 MG/150 ML 750 MG/150 ML BAG IVPB SCH (10:16)
[2017-03-06] MEDS: Vancomycin 1,500 MG in D5% in Water 250 ML IVPB SCH (10:17)
--- NOTE | 2017-03-06 13:58 | Internal Med Progress Note ---
Date of Encounter: 03/06/17 Time of Encounter: 08:00 - Assessment and plan (1) Sepsis Current Visit: Yes Status: Acute Assessment and plan: resolved. secondary to lung abscess. Qualifiers: Sepsis type: sepsis due to unspecified organism Qualified Code(s): A41.9 - Sepsis, unspecified organism (2) Lung abscess Current Visit: Yes Status: Acute Assessment and plan: 41 yo male with past medical history of alcohol abuse who was diagnosed of CAP 5 weeks ago, and completed a seven-day course of levaquin. He was doing fine until the day prior to admission when he developed hemoptysis and yellowish sputum. In our ED, temp was 103, hr 118, wbc 17. CT chest shows a large thick walled oval-shaped abscess in the posteroinferior left hemithorax. Patient denies any recent travel, no tobacco use, no sick contacts. 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 Patient underwent bronchoscopy revealing copious mucus plugging and mucopurulent secretions in the left lower lobe, BAL performed, suspicious left lower lobe airway lesion status post brushings. Appreciate CTS, pulmology and ID input. continue empiric IV vancomycin, Zosyn and levaquin. IV fluids. BAL showed GPC. BAL cultures pending. Patient will need at least 7 days of IV antibiotic therapy, I will consult social services aide for IV antibiotics at home. Qualifiers: Pulmonary abscess pneumonia presence: with pneumonia Laterality: left Lung location: lower lobe of lung Qualified Code(s): J85.1 - Abscess of lung with pneumonia (3) Pneumonia Current Visit: Yes Status: Acute Assessment and plan: Bacterial left lower lobe pneumonia. Plan as above. Qualifiers: Pneumonia type: due to unspecified organism Laterality: left Lung location: lower lobe of lung Qualified Code(s): J18.1 - Lobar pneumonia, unspecified organism (4) Anemia Current Visit: Yes Status: Acute Assessment and plan: Hemoglobin 10.5. pt is hemodynamically stable. no bleeding. Unclear etiology. Check ferritin, B12, folate, reticulocyte, TSH, iron profile. Normal bilirubin. Qualifiers: Anemia type: unspecified type Qualified Code(s): D64.9 - Anemia, unspecified (5) Alcohol abuse Current Visit: Yes Status: Chronic Assessment and plan: CIWA protocol. counseled to quit - Subjective Interval history: The patient denies any chest pain, or shortness of breath. Positive dry cough - Constitutional Vitals: Temp Pulse Resp BP Pulse Ox 98.2 F 86 18 124/78 97 03/06/17 11:19 03/06/17 11:20 03/06/17 11:19 03/06/17 11:19 03/06/17 11:19 General appearance: Present: cooperative, A&O X 3, pleasant, no acute distress, answers questions appropriately - Eye Eye exam: Present: PERRL, sclera anicteric - Neck Neck exam general surgery: Present: supple, trachea midline - Respiratory Respiratory exam: Present: decreased breath sounds (Decreased for entry into left lower lobe.), rales (Left lower lobe.) - Cardiovascular Cardiovascular exam: Present: RRR - GI/Abdominal GI/Abdominal exam: Present: normal bowel sounds, soft. Absent: distended, tenderness - Extremities Exam Extremities exam: Absent: pedal edema - Back Exam Back exam: Absent: CVA tenderness (L), CVA tenderness (R) - Neurological Exam Neurological exam: Present: alert, oriented X3, no focal deficits, strengths equal and symetr throughout. Absent: facial droop, speech deficit - Skin Skin exam: Absent: rash Internal Medicine: Result - Labs CBC & Chem 7: 03/06/17 05:09 03/06/17 05:09 Labs: Short CBC 03/06/17 Range/Units 05:09 WBC 15.2 H (4.3-11.1) K/mcL Hgb 10.5 L (12.9-16.9) g/dL Hct 32.7 L (37.5-50.1) % Plt Count 451 H (140-400) K/mcL Neutrophils # 12.5 H (1.6-8.9) K/mcL BMP 03/06/17 05:09 Sodium 139 Potassium 4.1 Chloride 103 Carbon Dioxide 28 BUN 8 Creatinine 0.96 Glucose 91 Calcium 9.1 Liver Function 03/06/17 Range/Units 05:09 Total Bilirubin 0.7 (0.2-1.2) mg/dL Direct Bilirubin 0.3 (0.0-0.5) mg/dL AST 22 (5-34) Units/L ALT 29 (0-55) Units/L Alkaline Phosphatase 117 (38-126) Units/L Albumin 2.2 L (3.5-5.0) g/dL - ABG Interpretation ABG results: PT/INR, D-dimer PT 17.9 Seconds (9.4-12.1) H 03/04/17 19:37 Consult Discharge Plan - Plan Referrals: Richard Blanca DO [Primary Care Provider] - (Dr. Blanca's office will not make appointments for us the Patient has to call and make their own.) Micky Rivera MD [Partnered Physician] - 04/08/17 1:00 pm
[2017-03-06] MEDS: Vancomycin 1,750 MG in D5% in Water 500 ML IVPB SCH (23:00)
[2017-03-07] MEDS: Piperacillin/Tazobactam 3.375 GM in D5% in Water (Mini-Bag+) 100 ML IVPB SCH ×3 (04:46→20:54)
--- NOTE | 2017-03-07 07:29 | Cardiothoracic Progress Note ---
Date of Encounter: 03/07/17 Time of Encounter: 07:27 - Assessment and plan (1) Lung abscess Current Visit: Yes Status: Acute The patient is to clinic improving with the intravenous antibiotic therapy. The assessment and plan as outlined above was discussed with the patient and/or family members who expressed understanding and agreement. All questions were answered. Qualifiers: Pulmonary abscess pneumonia presence: with pneumonia Laterality: left Lung location: lower lobe of lung Qualified Code(s): J85.1 - Abscess of lung with pneumonia - Subjective Interval history: The patient is resting comfortably in his hospital bed. He had some coughing episodes earlier this morning; however, the sputum is now clear. He has no other complaints. Vital Signs, Last 4 Hours Temp Pulse Resp BP Pulse Ox 03/07/17 04:45 80 03/07/17 04:32 98.1 F 86 24 129/80 96 Oxgyen Flow Rate Oxygen Flow Rate (LPM) 0 Clinical Data, last 8 Hours Output, Urine Amount 450 Output, Urine Amount 500 Weight 03/05/17 03/06/17 03/07/17 23:59 23:59 23:59 Weight 99.6 kg 99 kg 97.1 kg - Physical Examination General: Conversant, No Apparent Distress Neck: No JVD, Normal carotid pulses Lungs: Normal Breath Sounds (Right lung alexander.), Decreased breath sounds (Left lung alexander; however, improved air movement from the previous day.), No Wheeze, Rales, Rhonchi (Right lung alexander.) Neuro: Alert and responsive, No focal deficits noted Vascular: Normal capillary refill Musculoskeletal: No Chest Wall Tenderness Extremities: No Clubbing, No Cyanosis, No Edema, Normal Pulses - Labs 03/06/17 05:09 03/06/17 05:09 Consult Discharge Plan - Plan Referrals: Richard Blanca DO [Primary Care Provider] - (Dr. Blanca's office will not make appointments for us the Patient has to call and make their own.) Micky Rivera MD [Partnered Physician] - 04/08/17 1:00 pm
[2017-03-07 07:42] LABS: Basophils % 0.3 %; Eosinophils # 0.1 K/mcL (0.0-0.6); Eosinophils % 0.8 %; Hematocrit 31.8 % (37.5-50.1); Hemoglobin 10.4 g/dL (12.9-16.9); Immature Reticulocyte % 35.9 % (11.0-38.0); Lymphocytes # 1.5 K/mcL (0.6-4.6); Lymphocytes % 13.8 %; Mean Corpuscular HGB Conc 32.7 g/dL (31.6-35.5); Mean Corpuscular Hemoglobin 29.2 pg (28.0-33.3); Mean Corpuscular Volume 89.3 fL (83.0-100.0); Mean Platelet Volume 10.3 fL (9.4-12.4); Monocytes # 0.8 K/mcL (0.0-1.3); Monocytes % 7.1 %; Neutrophils # 8.2 K/mcL (1.6-8.9); Platelet Count 433 K/mcL (140-400); Red Blood Count 3.56 M/mcL (4.19-5.50); Red Cell Distribution Width 14.6 % (11.5-14.5); Retculocyte # 0.08 M/mcL (0.05-0.10); Reticulocyte % 2.2 % (1.6-2.8)
[2017-03-07 07:54] LABS: BUN/Creatinine Ratio 10 (6-26); Blood Urea Nitrogen 9 mg/dL (8-26); Calcium 9.2 mg/dL (8.6-10.8); Carbon Dioxide 28 mEq/L (19-29); Chloride 104 mEq/L (98-109); Glucose 91 mg/dL (70-99); Magnesium 2.1 mg/dL (1.6-2.6); Osmolality,Calculated 284 (280-300); Sodium 138 mEq/L (136-145); eGFR For African Americans > 60 (> 60); eGFR For Non-African Americans > 60 (> 60)
[2017-03-07 08:17] LABS: Thyroid Stimulating Hormone 2.864 mcIU/mL (0.350-4.840)
[2017-03-07] MEDS: Vancomycin 1,750 MG in D5% in Water 500 ML IVPB SCH ×2 (09:26→23:02)
[2017-03-07] MEDS: Levofloxacin 750 MG/150 ML 750 MG/150 ML BAG IVPB SCH (09:26)
[2017-03-07 11:55] LABS: % Iron Saturation 18 % (20-55); Iron 32 mcg/dL (65-175); Transferrin 126 mg/dL (174-364)
[2017-03-07 12:16] LABS: Ferritin 672 ng/ml (22-275)
--- NOTE | 2017-03-07 13:01 | Internal Med Progress Note ---
Date of Encounter: 03/07/17 Time of Encounter: 08:45 - Assessment and plan (1) Sepsis Current Visit: Yes Status: Acute Assessment and plan: resolved. secondary to lung abscess. Qualifiers: Sepsis type: sepsis due to unspecified organism Qualified Code(s): A41.9 - Sepsis, unspecified organism (2) Lung abscess Current Visit: Yes Status: Acute Assessment and plan: 41 yo male with past medical history of alcohol abuse who was diagnosed of CAP 5 weeks ago, and completed a seven-day course of levaquin. He was doing fine until the day prior to admission when he developed hemoptysis and yellowish sputum. In our ED, temp was 103, hr 118, wbc 17. CT chest shows a large thick walled oval-shaped abscess in the posteroinferior left hemithorax. Patient denies any recent travel, no tobacco use, no sick contacts. 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 03/05 Patient underwent bronchoscopy revealing copious mucus plugging and mucopurulent secretions in the left lower lobe, BAL performed, suspicious left lower lobe airway lesion status post brushings. Clinically slowly improving. Appreciate CTS, pulmology and ID input. continue empiric IV vancomycin, Zosyn and levaquin. IV fluids. BAL showed GPC. BAL cultures pending. Patient will need at least 7 days of IV antibiotic therapy, I will consult adoption social worker for IV antibiotics at home. Qualifiers: Pulmonary abscess pneumonia presence: with pneumonia Laterality: left Lung location: lower lobe of lung Qualified Code(s): J85.1 - Abscess of lung with pneumonia (3) Pneumonia Current Visit: Yes Status: Acute Assessment and plan: Bacterial left lower lobe pneumonia. Plan as above. Qualifiers: Pneumonia type: due to unspecified organism Laterality: left Lung location: lower lobe of lung Qualified Code(s): J18.1 - Lobar pneumonia, unspecified organism (4) Anemia Current Visit: Yes Status: Acute Assessment and plan: Hemoglobin 10.4. pt is hemodynamically stable. no bleeding. Normal folate, B12 , ferritin, TSH, bilirubin. Low iron and reticulocyte. Close monitor Qualifiers: Anemia type: unspecified type Qualified Code(s): D64.9 - Anemia, unspecified (5) Alcohol abuse Current Visit: Yes Status: Chronic Assessment and plan: CIWA protocol. counseled to quit - Subjective Interval history: Patient feels better. No cough since 5 AM. - Constitutional Vitals: Temp Pulse Resp BP Pulse Ox 97.9 F 91 16 118/82 97 03/07/17 10:58 03/07/17 11:06 03/07/17 10:58 03/07/17 10:58 03/07/17 10:58 General appearance: Present: cooperative, A&O X 3, pleasant, no acute distress, answers questions appropriately - Eye Eye exam: Present: PERRL, sclera anicteric - Neck Neck exam general surgery: Present: supple, trachea midline. Absent: lymphadenopathy - Respiratory Respiratory exam: Present: wheezes (At left lower lobe.) - Cardiovascular Cardiovascular exam: Present: RRR - GI/Abdominal GI/Abdominal exam: Present: normal bowel sounds, soft. Absent: distended, tenderness - Extremities Exam Extremities exam: Absent: pedal edema - Back Exam Back exam: Absent: CVA tenderness (L), CVA tenderness (R) - Neurological Exam Neurological exam: Present: alert, oriented X3, no focal deficits, strengths equal and symetr throughout. Absent: facial droop, speech deficit - Skin Skin exam: Absent: rash Internal Medicine: Result - Labs CBC & Chem 7: 03/07/17 06:45 03/07/17 06:45 Labs: Short CBC 03/07/17 Range/Units 06:45 WBC 10.6 (4.3-11.1) K/mcL Hgb 10.4 L (12.9-16.9) g/dL Hct 31.8 L (37.5-50.1) % Plt Count 433 H (140-400) K/mcL Neutrophils # 8.2 (1.6-8.9) K/mcL BMP 03/07/17 06:45 Sodium 138 Potassium 4.0 Chloride 104 Carbon Dioxide 28 BUN 9 Creatinine 0.92 Glucose 91 Calcium 9.2 - ABG Interpretation ABG results: PT/INR, D-dimer PT 17.9 Seconds (9.4-12.1) H 03/04/17 19:37 Consult Discharge Plan - Plan Referrals: Richard Blanca DO [Primary Care Provider] - (Dr. Blanca's office will not make appointments for us the Patient has to call and make their own.) Micky Rivera MD [Partnered Physician] - 04/08/17 1:00 pm
[2017-03-08 04:39] LABS: Basophils % 0.3 %; Eosinophils # 0.1 K/mcL (0.0-0.6); Eosinophils % 1.1 %; Hematocrit 33.5 % (37.5-50.1); Hemoglobin 10.5 g/dL (12.9-16.9); Immature Granulocytes % 1.9 % (0-4); Lymphocytes # 1.9 K/mcL (0.6-4.6); Lymphocytes % 17.8 %; Mean Corpuscular HGB Conc 31.3 g/dL (31.6-35.5); Mean Corpuscular Hemoglobin 28.2 pg (28.0-33.3); Mean Corpuscular Volume 89.8 fL (83.0-100.0); Monocytes # 0.8 K/mcL (0.0-1.3); Monocytes % 7.3 %; Neutrophils # 7.5 K/mcL (1.6-8.9); Platelet Count 472 K/mcL (140-400); Red Blood Count 3.73 M/mcL (4.19-5.50); Red Cell Distribution Width 14.6 % (11.5-14.5); Segmented Neutrophils % 71.6 %
[2017-03-08] MEDS: Piperacillin/Tazobactam 3.375 GM in D5% in Water (Mini-Bag+) 100 ML IVPB SCH ×3 (04:51→20:13)
[2017-03-08 04:54] LABS: BUN/Creatinine Ratio 10 (6-26); Blood Urea Nitrogen 10 mg/dL (8-26); Carbon Dioxide 28 mEq/L (19-29); Chloride 105 mEq/L (98-109); Glucose 91 mg/dL (70-99); Osmolality,Calculated 287 (280-300); Potassium 4.1 mEq/L (3.5-4.5); Sodium 139 mEq/L (136-145); eGFR For African Americans > 60 (> 60); eGFR For Non-African Americans > 60 (> 60)
[2017-03-08] MEDS: levoFLOXacin 750 MG TABLET PO SCH (07:54)
--- NOTE | 2017-03-08 08:31 | Cardiothoracic Progress Note ---
Date of Encounter: 03/08/17 Time of Encounter: 08:29 - Assessment and plan (1) Lung abscess Current Visit: Yes Status: Acute The assessment and plan as outlined above was discussed with the patient and/or family members who expressed understanding and agreement. All questions were answered. The patient has a left lower lobe pulmonary abscess. Over 90% of these will respond to IV antibiotics and repeated bronchoscopy if necessary. The patient is okay for discharge from my standpoint on antibiotics. Qualifiers: Pulmonary abscess pneumonia presence: with pneumonia Laterality: left Lung location: lower lobe of lung Qualified Code(s): J85.1 - Abscess of lung with pneumonia - Subjective Interval history: The patient has no complaints and feels much better. Vital Signs, Last 4 Hours Temp Pulse Resp BP Pulse Ox 03/08/17 07:32 98.1 F 90 18 134/86 97 03/08/17 04:45 84 Oxgyen Flow Rate Oxygen Flow Rate (LPM) 0 Clinical Data, last 8 Hours Output, Urine Amount 350 Output, Urine Amount 400 Weight 03/06/17 03/07/17 03/08/17 23:59 23:59 23:59 Weight 99 kg 97.1 kg 95.3 kg Lungs are clear to percussion and auscultation. Heart is in a normal sinus rhythm. - Labs 03/08/17 04:03 03/08/17 04:03 Lab Results, Last 24 hours 03/08/17 03/08/17 04:03 04:03 WBC 10.5 Hgb 10.5 L Hct 33.5 L Plt Count 472 H Sodium 139 Potassium 4.1 Chloride 105 Carbon Dioxide 28 BUN 10 Creatinine 0.99 Glucose 91 Calcium 9.0 Consult Discharge Plan - Plan Referrals: Richard Blanca DO [Primary Care Provider] - (Dr. Blanca's office will not make appointments for us the Patient has to call and make their own.) Micky Rivera MD [Partnered Physician] - 04/08/17 1:00 pm
[2017-03-08] MEDS: Vancomycin 1,750 MG in D5% in Water 500 ML IVPB SCH ×2 (10:53→22:28)
[2017-03-08 11:06] LABS: HIV-1&2 Antibody & p24 Ag Nonreactive (Nonreactive); Hepatitis A Antibody IgM Nonreactive (Nonreactive); Hepatitis B Core IgM Nonreactive (Nonreactive); Hepatitis B Surface Antigen Nonreactive (Nonreactive); Hepatitis C Virus Antibody Nonreactive (Nonreactive)
--- NOTE | 2017-03-08 13:13 | Infectious Disease Progress No ---
Date of Encounter: 03/08/17 Time of Encounter: 13:06 - Assessment and Plan (1) Sepsis Current Visit: Yes Status: Acute The patient had three SIRS criteria on admission. Likely secondary to PNA and lung abscess. Improved. The patient has been afebrile. Tachycardia and leukocytosis have resolved. Blood cultures drawn 03/04/17 are NGTD x 2 sets. Qualifiers: Sepsis type: sepsis due to unspecified organism Qualified Code(s): A41.9 - Sepsis, unspecified organism (2) Lung abscess Current Visit: Yes Status: Acute Causative organism unclear. Likely secondary to recent PNA. CXR showed increasing opacity in the inferior left hemithorax representing a combination of worsening left lower lobe pneumonia and adjacent loculated pleural disease. A small air-fluid level suggesting an abscess was noted. Developing empyema cannot be excluded. A CT of the chest was then completed that showed a large thick-walled oval- shaped abscess in the posterior inferior left hemithorax that appears to be within the parenchyma of the left lower lobe representing a lung abscess as a complication of the previously noted pneumonia. Extension into the pleural space with loculated empyema could not be excluded. Cardiothoracic surgery was consulted. Appreciate their recommendations. Surgical intervention is not indicated at this time. Recommend continued IV antibiotic therapy. Sputum culture obtained in the ER appears contaminated. Pulmonology team was consulted. Status post bronchoscopy 03/05/17. Endoscopy for reviewed. Large amount of mucopurulent secretions and mucous plugging noted. Erythema noted to the lower lobe of the left lung mucosa. BAL sent for culture, Gram stain, and AFB. Gram stain shows few GPC, but culture interpreted as NURTF. AFB smear negative. Spoke with Jenaro Lopez and asked him to go ahead and culture out the NURTF since this is a BAL specimen. Etiology of persistent PNA remains unclear. Patient has no indication of immunosuppression or history of high-risk behaviors. The patient does have a history of daily ETOH use, but denies drinking excessively to the point that he passes out that would indicate possible aspiration as a cause. Discussed with Dr. Agrawal. Based on the large size of the abscess, concerned that IV antibiotic therapy alone will not be sufficient to adequately treat the abscess. May need to consider IR to aspirate the abscess if possible, but will await further recommendations from the CTS team. HIV and Hepatitis profile non-reactive. S. pneumo and Legionella UAT negative. Levaquin discontinued by the primary team over the weekend. Continue Vancomycin. Pharmacy to dose. Goal trough approximately 15. Continue Zosyn 3.375 grams IV Q8H. Duration of treatment depends on the clinical picture. Monitor renal function and for drug toxicity and dose-adjust antibiotics. Qualifiers: Pulmonary abscess pneumonia presence: with pneumonia Laterality: left Lung location: lower lobe of lung Qualified Code(s): J85.1 - Abscess of lung with pneumonia (3) Pneumonia Current Visit: Yes Status: Acute Causative organism unclear. Status post bronch. Cultures non-revealing. Continues antibiotics as above. Qualifiers: Pneumonia type: due to unspecified organism Laterality: left Lung location: lower lobe of lung Qualified Code(s): J18.1 - Lobar pneumonia, unspecified organism (4) Cough with hemoptysis Current Visit: Yes Status: Resolved Likely secondary to PNA. Hemoptysis resolved. Pulmonology consulted and following. (5) Anemia Current Visit: Yes Status: Acute Etiology unclear. Further workup and management per the primary team. Qualifiers: Anemia type: unspecified type Qualified Code(s): D64.9 - Anemia, unspecified (6) Alcohol abuse Current Visit: Yes Status: Chronic - Subjective Interval history: Patient seen and examined. Weekend notes reviewed. Patient states that overall he feels much better today. Denies fevers, chills, or rigors. Denies chest pain and states his shortness of breath has resolved. He reports a cough that has been productive of green phlegm, but has been clearing over the past few days and sputum is clear today. Denies nausea, vomiting, diarrhea, or constipation. Denies abdominal pain and states his appetite is good. Denies urinary complaints. Denies oral thrush or skin lesions. Infect Dis PN-Objective Data - Labs CBC & Chem 7: 03/09/17 04:32 03/09/17 04:32 Labs: Laboratory Results - last 24 hr 03/06/17 03/06/17 03/08/17 05:09 05:09 04:03 WBC 10.5 RBC 3.73 L Hgb 10.5 L Hct 33.5 L MCV 89.8 MCH 28.2 MCHC 31.3 L RDW 14.6 H Plt Count 472 H MPV 10.0 Immature Gran % 1.9 Seg Neutrophils % 71.6 Lymphocytes % 17.8 Monocytes % 7.3 Eosinophils % 1.1 Basophils % 0.3 Neutrophils # 7.5 Lymphocytes # 1.9 Monocytes # 0.8 Eosinophils # 0.1 Basophils # 0.0 Sodium Potassium Chloride Carbon Dioxide BUN Creatinine Est GFR ( Amer) Est GFR (Non-Af Amer) BUN/Creatinine Ratio Glucose Calculated Osmolality Calcium Vancomycin Trough T.pallidum Ab Interpret NEGATIVE Hepatitis A IgM Ab Nonreactive Hep Bs Antigen Nonreactive Hep B Core IgM Ab Nonreactive Hepatitis C Ab Screen Nonreactive HIV Ag/Ab Combo Qual Nonreactive 03/08/17 03/08/17 04:03 08:45 WBC RBC Hgb Hct MCV MCH MCHC RDW Plt Count MPV Immature Gran % Seg Neutrophils % Lymphocytes % Monocytes % Eosinophils % Basophils % Neutrophils # Lymphocytes # Monocytes # Eosinophils # Basophils # Sodium 139 Potassium 4.1 Chloride 105 Carbon Dioxide 28 BUN 10 Creatinine 0.99 Est GFR ( Amer) > 60 Est GFR (Non-Af Amer) > 60 BUN/Creatinine Ratio 10 Glucose 91 Calculated Osmolality 287 Calcium 9.0 Vancomycin Trough 17.2 T.pallidum Ab Interpret Hepatitis A IgM Ab Hep Bs Antigen Hep B Core IgM Ab Hepatitis C Ab Screen HIV Ag/Ab Combo Qual Cultures: Cultures 03/05/17 14:00 Gram Stain - Final Left Lower Lobe Lung 03/05/17 14:00 Respiratory Culture - Final Left Lower Lobe Lung Normal upper respiratory tract juan alberto. No apparent pathogens isolated. 03/05/17 14:00 Respiratory Culture - Final Left Lower Lobe Lung Normal upper respiratory tract juan alberto. No apparent pathogens isolated. 03/05/17 14:00 Acid Fast Stain - Final Left Lower Lobe Lung 03/05/17 21:25 Legionella Antigen - Final Urine,Random-Not Preferred Streptococcus pneumoniae Antigen (M - Final Serology 03/06/17 03/06/17 03/05/17 Range/Units 05:09 05:09 14:00 Fluid Source LLL BAL Fluid Volume 15 mL Fluid Appearance Slightly Hazy A (Clear) Fluid RBC TNP Fld Tot Nucleated Cell TNP Fluid Seg Neutrophil % 98.0 % Fluid Basophils % 2.0 % T.pallidum Ab Interpret NEGATIVE (NEGATIVE) Hepatitis A IgM Ab Nonreactive (Nonreactive) Hep Bs Antigen Nonreactive (Nonreactive) Hep B Core IgM Ab Nonreactive (Nonreactive) Hepatitis C Ab Screen Nonreactive (Nonreactive) HIV Ag/Ab Combo Qual Nonreactive (Nonreactive) Exam - Constitutional Vitals: Temp Pulse Resp BP Pulse Ox 98.3 F 87 18 125/80 97 03/08/17 11:18 03/08/17 11:18 03/08/17 11:18 03/08/17 11:18 03/08/17 11:18 General appearance: average body habitus, cooperative, no acute distress - Head Head exam: Present: atraumatic, normal inspection, normocephalic - Eye Eye exam: Present: EOMI, normal appearance, PERRL Pupils: Present: normal accommodation - ENT ENT exam: Present: mucous membranes moist - Neck Neck exam: Present: normal inspection - Respiratory Respiratory exam: Present: CTAB. Absent: rales, respiratory distress, rhonchi, wheezes - Cardiovascular Cardiovascular exam: Present: RRR, +S1, +S2 - GI/Abdominal GI/Abdominal exam: Present: normal bowel sounds, soft. Absent: distended, tenderness - Extremities Exam Extremities exam: Present: normal inspection. Absent: joint swelling, pedal edema, tenderness - Neurological Exam Neurological exam: Present: alert, oriented X3, no focal deficits - Psychiatric Psychiatric exam: Present: normal affect, normal mood - Skin Skin exam: Present: dry, intact, normal color, warm Consult Discharge Plan - Plan Referrals: Richard Blanca DO [Primary Care Provider] - (Dr. Blanca's office will not make appointments for us the Patient has to call and make their own.) Aury Dhillon MD [Partnered Physician] - 03/15/17 2:00 pm Micky Rivera MD [Partnered Physician] - 04/08/17 1:00 pm - Attending Attestation I examined this patient and my medical decision-making was reviewed with the Resident Physician. I agree with the documented findings, disposition and treatment plan as described except to the extent set forth below.
--- NOTE | 2017-03-08 15:54 | Internal Med Progress Note ---
Date of Encounter: 03/08/17 Time of Encounter: 10:00 - Assessment and plan (1) Sepsis Current Visit: Yes Status: Acute Assessment and plan: resolved. secondary to lung abscess. Qualifiers: Sepsis type: sepsis due to unspecified organism Qualified Code(s): A41.9 - Sepsis, unspecified organism (2) Lung abscess Current Visit: Yes Status: Acute Assessment and plan: 41 yo male with past medical history of alcohol abuse who was diagnosed of CAP 5 weeks ago, and completed a seven-day course of levaquin. He was doing fine until the day prior to admission when he developed hemoptysis and yellowish sputum. In our ED, temp was 103, hr 118, wbc 17. CT chest shows a large thick walled oval-shaped abscess in the posteroinferior left hemithorax. Patient denies any recent travel, no tobacco use, no sick contacts. 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 03/05 Patient underwent bronchoscopy revealing copious mucus plugging and mucopurulent secretions in the left lower lobe, BAL performed, suspicious left lower lobe airway lesion status post brushings. Clinically slowly improving. Appreciate CTS, pulmonology and ID input. continue empiric IV vancomycin, Zosyn and levaquin. BAL showed few GPC. BAL cultures pending. Patient will need IV antibiotic therapy at home. Qualifiers: Pulmonary abscess pneumonia presence: with pneumonia Laterality: left Lung location: lower lobe of lung Qualified Code(s): J85.1 - Abscess of lung with pneumonia (3) Pneumonia Current Visit: Yes Status: Acute Assessment and plan: Bacterial left lower lobe pneumonia. Plan as above. Qualifiers: Pneumonia type: due to unspecified organism Laterality: left Lung location: lower lobe of lung Qualified Code(s): J18.1 - Lobar pneumonia, unspecified organism (4) Anemia Current Visit: Yes Status: Acute Assessment and plan: Hemoglobin 10.5. pt is hemodynamically stable. no bleeding. Normal folate, B12 , ferritin, TSH, bilirubin. Low iron and reticulocyte. Close monitor Qualifiers: Anemia type: unspecified type Qualified Code(s): D64.9 - Anemia, unspecified (5) Alcohol abuse Current Visit: Yes Status: Chronic Assessment and plan: CIWA protocol. counseled to quit - Subjective Interval history: Patient has no complaints. He is eager to go home. He reports that he needs to take care of his dog at home. - Constitutional Vitals: Temp Pulse Resp BP Pulse Ox 98.3 F 87 18 125/80 97 03/08/17 11:18 03/08/17 11:18 03/08/17 11:18 03/08/17 11:18 03/08/17 11:18 General appearance: Present: cooperative, A&O X 3, pleasant, no acute distress, answers questions appropriately - Eye Eye exam: Present: PERRL, sclera anicteric - Neck Neck exam general surgery: Present: supple, trachea midline. Absent: lymphadenopathy - Respiratory Respiratory exam: Present: rhonchi. Absent: decreased breath sounds - Cardiovascular Cardiovascular exam: Present: RRR - GI/Abdominal GI/Abdominal exam: Present: normal bowel sounds, soft. Absent: distended, tenderness - Extremities Exam Extremities exam: Absent: pedal edema - Back Exam Back exam: Absent: CVA tenderness (L), CVA tenderness (R) - Neurological Exam Neurological exam: Present: alert, oriented X3, no focal deficits, strengths equal and symetr throughout. Absent: facial droop, speech deficit - Skin Skin exam: Absent: rash Internal Medicine: Result - Labs CBC & Chem 7: 03/08/17 04:03 03/08/17 04:03 Labs: Short CBC 03/08/17 Range/Units 04:03 WBC 10.5 (4.3-11.1) K/mcL Hgb 10.5 L (12.9-16.9) g/dL Hct 33.5 L (37.5-50.1) % Plt Count 472 H (140-400) K/mcL Neutrophils # 7.5 (1.6-8.9) K/mcL BMP 03/08/17 04:03 Sodium 139 Potassium 4.1 Chloride 105 Carbon Dioxide 28 BUN 10 Creatinine 0.99 Glucose 91 Calcium 9.0 - ABG Interpretation ABG results: PT/INR, D-dimer PT 17.9 Seconds (9.4-12.1) H 03/04/17 19:37 Consult Discharge Plan - Plan Referrals: Richard Blanca DO [Primary Care Provider] - (Dr. Blanca's office will not make appointments for us the Patient has to call and make their own.) Aury Dhillon MD [Partnered Physician] - 03/15/17 2:00 pm Micky Rivera MD [Partnered Physician] - 04/08/17 1:00 pm
[2017-03-08] MEDS ORDERED: Lidocaine -MPF 1% 5 ML AMPUL INFILT ONE (16:03)
[2017-03-09] MEDS: Piperacillin/Tazobactam 3.375 GM in D5% in Water (Mini-Bag+) 100 ML IVPB SCH ×3 (03:38→19:57)
[2017-03-09 05:33] LABS: Basophils # 0.1 K/mcL (0.0-0.2); Basophils % 0.6 %; Eosinophils # 0.2 K/mcL (0.0-0.6); Eosinophils % 1.7 %; Hematocrit 36.7 % (37.5-50.1); Hemoglobin 11.4 g/dL (12.9-16.9); Lymphocytes # 1.9 K/mcL (0.6-4.6); Mean Corpuscular HGB Conc 31.1 g/dL (31.6-35.5); Mean Corpuscular Hemoglobin 28.1 pg (28.0-33.3); Mean Corpuscular Volume 90.4 fL (83.0-100.0); Mean Platelet Volume 9.9 fL (9.4-12.4); Monocytes # 0.8 K/mcL (0.0-1.3); Monocytes % 7.6 %; Neutrophils # 6.9 K/mcL (1.6-8.9); Platelet Count 466 K/mcL (140-400); Red Blood Count 4.06 M/mcL (4.19-5.50); Red Cell Distribution Width 14.6 % (11.5-14.5); Segmented Neutrophils % 68.1 %
[2017-03-09 06:04] LABS: BUN/Creatinine Ratio 10 (6-26); Blood Urea Nitrogen 10 mg/dL (8-26); Calcium 9.1 mg/dL (8.6-10.8); Carbon Dioxide 28 mEq/L (19-29); Chloride 105 mEq/L (98-109); Glucose 88 mg/dL (70-99); Osmolality,Calculated 286 (280-300); Potassium 4.3 mEq/L (3.5-4.5); Sodium 139 mEq/L (136-145); eGFR For African Americans > 60 (> 60); eGFR For Non-African Americans > 60 (> 60)
[2017-03-09] MEDS: levoFLOXacin 750 MG TABLET PO SCH (08:22)
--- NOTE | 2017-03-09 08:29 | Cardiothoracic Progress Note ---
Date of Encounter: 03/09/17 Time of Encounter: 08:27 - Assessment and plan (1) Lung abscess Current Visit: Yes Status: Acute The patient is to clinic improving with the intravenous antibiotic therapy. I do not believe that abscess drainage will facilitate the patient's recovery at this time. I believe that the patient should continue with his antibiotic therapy and be reassessed with serial chest x-rays as an outpatient. If the abscess does not resolve or if he develops empyema the patient will then require surgical intervention. The assessment and plan as outlined above was discussed with the patient and/or family members who expressed understanding and agreement. All questions were answered. Qualifiers: Pulmonary abscess pneumonia presence: with pneumonia Laterality: left Lung location: lower lobe of lung Qualified Code(s): J85.1 - Abscess of lung with pneumonia - Subjective Interval history: The patient is resting comfortably in his hospital bed. He has no complaints. Vital Signs, Last 4 Hours Temp Pulse Resp BP Pulse Ox 03/09/17 07:39 98.3 F 92 16 136/84 95 Oxgyen Flow Rate Oxygen Flow Rate (LPM) 0 Clinical Data, last 8 Hours Output, Urine Amount 325 Output, Urine Amount 450 Output, Urine Amount 925 Weight 03/07/17 03/08/17 03/09/17 23:59 23:59 23:59 Weight 97.1 kg 95.3 kg 94.8 kg - Physical Examination General: Conversant, No Apparent Distress Neck: No JVD, Normal carotid pulses Cardiac: Reg Rate and Rhythm, Normal S1 and S2, No Murmur Lungs: Normal Breath Sounds (Right lung alexander.), Decreased breath sounds (Left base, posteriorly.), No Wheeze, Rales, Rhonchi (Right lung alexander.) Neuro: Alert and responsive, No focal deficits noted Vascular: Normal capillary refill Musculoskeletal: No Chest Wall Tenderness Extremities: No Clubbing, No Cyanosis, No Edema - Labs 03/09/17 04:32 03/09/17 04:32 Lab Results, Last 24 hours 03/09/17 03/09/17 04:32 04:32 WBC 10.2 Hgb 11.4 L Hct 36.7 L Plt Count 466 H Sodium 139 Potassium 4.3 Chloride 105 Carbon Dioxide 28 BUN 10 Creatinine 1.03 Glucose 88 Calcium 9.1 Consult Discharge Plan - Plan Referrals: Colopy,Richard R, DO [Primary Care Provider] - (Dr. Blanca's office will not make appointments for us the Patient has to call and make their own.) Aury Dhillon MD [Partnered Physician] - 03/15/17 2:00 pm Micky Rivera MD [Partnered Physician] - 04/08/17 1:00 pm
[2017-03-09] MEDS: Vancomycin 1,750 MG in D5% in Water 500 ML IVPB SCH (09:59)
[2017-03-09] MEDS: 0.9 % Sodium Chloride 1,000 ML IVC SCH ×2 (13:22→13:23)
--- NOTE | 2017-03-09 14:13 | Infectious Disease Progress No ---
Date of Encounter: 03/09/17 Time of Encounter: 14:06 - Assessment and Plan (1) Sepsis Current Visit: Yes Status: Acute The patient had three SIRS criteria on admission. Likely secondary to PNA and lung abscess. Improved. The patient has been afebrile. Tachycardia and leukocytosis have resolved. Blood cultures drawn 03/04/17 are NGTD x 2 sets. Qualifiers: Sepsis type: sepsis due to unspecified organism Qualified Code(s): A41.9 - Sepsis, unspecified organism (2) Lung abscess Current Visit: Yes Status: Acute Causative organism unclear. Likely secondary to recent PNA. CXR showed increasing opacity in the inferior left hemithorax representing a combination of worsening left lower lobe pneumonia and adjacent loculated pleural disease. A small air-fluid level suggesting an abscess was noted. Developing empyema cannot be excluded. A CT of the chest was then completed that showed a large thick-walled oval- shaped abscess in the posterior inferior left hemithorax that appears to be within the parenchyma of the left lower lobe representing a lung abscess as a complication of the previously noted pneumonia. Extension into the pleural space with loculated empyema could not be excluded. Cardiothoracic surgery was consulted. Appreciate their recommendations. Surgical intervention is not indicated at this time. Recommend continued IV antibiotic therapy. Sputum culture obtained in the ER appears contaminated. Pulmonology team was consulted. Status post bronchoscopy 03/05/17. Endoscopy for reviewed. Large amount of mucopurulent secretions and mucous plugging noted. Erythema noted to the lower lobe of the left lung mucosa. BAL sent for culture, Gram stain, and AFB. Gram stain shows few GPC, but culture interpreted as NURTF. AFB smear negative. Spoke with Jenaro in [facility] and asked him to go ahead and culture out the NURTF since this is a BAL specimen --> pending. Etiology of persistent PNA remains unclear. Patient has no indication of immunosuppression or history of high-risk behaviors. The patient does have a history of daily ETOH use, but denies drinking excessively to the point that he passes out that would indicate possible aspiration as a cause. Based on the large size of the abscess, concerned that IV antibiotic therapy alone will not be sufficient to adequately treat the abscess but will attempt treatment with IV antibiotics and monitor with serial chest imaging. HIV and Hepatitis profile non-reactive. S. pneumo and Legionella UAT negative. Continue Vancomycin. Pharmacy to dose. Goal trough approximately 15. Continue Zosyn 3.375 grams IV Q8H. d/c oral levaquin Await cultures. Duration of treatment depends on the clinical picture, but likely 4 weeks of IV antibiotics followed by orals. Monitor renal function and for drug toxicity and dose-adjust antibiotics. Qualifiers: Pulmonary abscess pneumonia presence: with pneumonia Laterality: left Lung location: lower lobe of lung Qualified Code(s): J85.1 - Abscess of lung with pneumonia (3) Pneumonia Current Visit: Yes Status: Acute Causative organism unclear. Status post bronch. Cultures pending. Continues antibiotics as above. Qualifiers: Pneumonia type: due to unspecified organism Laterality: left Lung location: lower lobe of lung Qualified Code(s): J18.1 - Lobar pneumonia, unspecified organism (4) Cough with hemoptysis Current Visit: Yes Status: Resolved Likely secondary to PNA. Hemoptysis resolved. Pulmonology consulted and following. (5) Anemia Current Visit: Yes Status: Acute Etiology unclear. Further workup and management per the primary team. Qualifiers: Anemia type: unspecified type Qualified Code(s): D64.9 - Anemia, unspecified (6) Alcohol abuse Current Visit: Yes Status: Chronic - Subjective Interval history: Patient seen and examined. No acute events noted overnight. Patient states that overall he feels much better today. Denies fevers, chills, or rigors. Denies chest pain and states his shortness of breath has resolved. He reports a cough that has been productive of mostly clear sputum with occasional rust-colored. Denies nausea, vomiting, diarrhea, or constipation. Denies abdominal pain and states his appetite is good. Denies urinary complaints. Denies oral thrush or skin lesions. Infect Dis PN-Objective Data - Labs CBC & Chem 7: 03/09/17 04:32 03/09/17 04:32 Labs: Laboratory Results - last 24 hr 03/09/17 03/09/17 04:32 04:32 WBC 10.2 RBC 4.06 L Hgb 11.4 L Hct 36.7 L MCV 90.4 MCH 28.1 MCHC 31.1 L RDW 14.6 H Plt Count 466 H MPV 9.9 Immature Gran % 3.0 Seg Neutrophils % 68.1 Lymphocytes % 19.0 Monocytes % 7.6 Eosinophils % 1.7 Basophils % 0.6 Neutrophils # 6.9 Lymphocytes # 1.9 Monocytes # 0.8 Eosinophils # 0.2 Basophils # 0.1 Sodium 139 Potassium 4.3 Chloride 105 Carbon Dioxide 28 BUN 10 Creatinine 1.03 Est GFR ( Amer) > 60 Est GFR (Non-Af Amer) > 60 BUN/Creatinine Ratio 10 Glucose 88 Calculated Osmolality 286 Calcium 9.1 Cultures: Cultures 03/05/17 14:00 Respiratory Culture - Preliminary Left Lower Lobe Lung 03/05/17 14:00 Gram Stain - Final Left Lower Lobe Lung 03/05/17 14:00 Respiratory Culture - Final Left Lower Lobe Lung Normal upper respiratory tract juan alberto. No apparent pathogens isolated. 03/05/17 14:00 Acid Fast Stain - Final Left Lower Lobe Lung 03/05/17 21:25 Legionella Antigen - Final Urine,Random-Not Preferred Streptococcus pneumoniae Antigen (M - Final Serology 03/06/17 03/06/17 03/05/17 Range/Units 05:09 05:09 14:00 Fluid Source LLL BAL Fluid Volume 15 mL Fluid Appearance Slightly Hazy A (Clear) Fluid RBC TNP Fld Tot Nucleated Cell TNP Fluid Seg Neutrophil % 98.0 % Fluid Basophils % 2.0 % T.pallidum Ab Interpret NEGATIVE (NEGATIVE) Hepatitis A IgM Ab Nonreactive (Nonreactive) Hep Bs Antigen Nonreactive (Nonreactive) Hep B Core IgM Ab Nonreactive (Nonreactive) Hepatitis C Ab Screen Nonreactive (Nonreactive) HIV Ag/Ab Combo Qual Nonreactive (Nonreactive) - Impressions Impressions Chest X-Ray 03/09/17 08:29 IMPRESSION: 1. Right PICC with tip in the distal superior vena cava. 2. Stable appearance of the left lower lobe abscess. 3. No new or progressive pulmonary consolidation. D/ / 03/09/2017 09:14:29 Jacques Hernandez MD / Jennifer Vasquez Interpreting Provider: Jacques Hernandez MD Exam - Constitutional Vitals: Temp Pulse Resp BP Pulse Ox 98.2 F 92 16 139/87 98 03/09/17 11:12 03/09/17 12:12 03/09/17 11:12 03/09/17 11:12 03/09/17 11:12 General appearance: average body habitus, cooperative, no acute distress - Head Head exam: Present: atraumatic, normal inspection, normocephalic - Eye Eye exam: Present: EOMI, normal appearance, PERRL Pupils: Present: normal accommodation - ENT ENT exam: Present: mucous membranes moist - Neck Neck exam: Present: normal inspection - Respiratory Respiratory exam: Present: CTAB. Absent: rales, respiratory distress, rhonchi, wheezes - Cardiovascular Cardiovascular exam: Present: RRR, +S1, +S2 - GI/Abdominal GI/Abdominal exam: Present: normal bowel sounds, soft. Absent: distended, tenderness - Extremities Exam Extremities exam: Present: normal inspection. Absent: joint swelling, pedal edema, tenderness - Neurological Exam Neurological exam: Present: alert, oriented X3, no focal deficits - Psychiatric Psychiatric exam: Present: normal affect, normal mood - Skin Skin exam: Present: dry, intact, normal color, warm Consult Discharge Plan - Plan Referrals: Richard Blanca DO [Primary Care Provider] - (Dr. Blanca's office will not make appointments for us the Patient has to call and make their own.) Aury Dhillon MD [Partnered Physician] - 03/15/17 2:00 pm Micky Rivera MD [Partnered Physician] - 04/08/17 1:00 pm - Attending Attestation I examined this patient and my medical decision-making was reviewed with the Resident Physician. I agree with the documented findings, disposition and treatment plan as described except to the extent set forth below.
--- NOTE | 2017-03-09 16:38 | Internal Med Progress Note ---
Date of Encounter: 03/09/17 Time of Encounter: 16:36 - Assessment and plan (1) Sepsis Current Visit: Yes Status: Acute Assessment and plan: resolved. secondary to lung abscess. Qualifiers: Sepsis type: sepsis due to unspecified organism Qualified Code(s): A41.9 - Sepsis, unspecified organism (2) Lung abscess Current Visit: Yes Status: Acute Assessment and plan: 41 yo male with past medical history of alcohol abuse who was diagnosed of CAP 5 weeks ago, and completed a seven-day course of levaquin. He was doing fine until the day prior to admission when he developed hemoptysis and yellowish sputum. In our ED, temp was 103, hr 118, wbc 17. CT chest shows a large thick walled oval-shaped abscess in the posteroinferior left hemithorax. Patient denies any recent travel, no tobacco use, no sick contacts. 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 03/05 Patient underwent bronchoscopy revealing copious mucus plugging and mucopurulent secretions in the left lower lobe, BAL performed, suspicious left lower lobe airway lesion status post brushings. Clinically slowly improving. Appreciate CTS, pulmonology and ID input. continue empiric IV vancomycin, Zosyn and levaquin. BAL showed few GPC. final BAL cultures pending. Patient will need IV antibiotic therapy at home pending final results of BAL cultures. Qualifiers: Pulmonary abscess pneumonia presence: with pneumonia Laterality: left Lung location: lower lobe of lung Qualified Code(s): J85.1 - Abscess of lung with pneumonia (3) Pneumonia Current Visit: Yes Status: Acute Assessment and plan: Bacterial left lower lobe pneumonia. Plan as above. Qualifiers: Pneumonia type: due to unspecified organism Laterality: left Lung location: lower lobe of lung Qualified Code(s): J18.1 - Lobar pneumonia, unspecified organism (4) Anemia Current Visit: Yes Status: Acute Assessment and plan: Hemoglobin 11.4. pt is hemodynamically stable. no bleeding. Normal folate, B12 , ferritin, TSH, bilirubin. Low iron and reticulocyte. Close monitor Qualifiers: Anemia type: unspecified type Qualified Code(s): D64.9 - Anemia, unspecified (5) Alcohol abuse Current Visit: Yes Status: Chronic Assessment and plan: CIWA protocol. counseled to quit - Subjective Interval history: Patient reports yellowish productive cough. No hemoptysis. - Constitutional Vitals: Temp Pulse Resp BP Pulse Ox 98.3 F 88 15 131/80 98 03/09/17 15:22 03/09/17 15:22 03/09/17 15:22 03/09/17 15:22 03/09/17 15:22 General appearance: Present: cooperative, A&O X 3, pleasant, no acute distress, answers questions appropriately - Neck Neck exam general surgery: Present: supple, trachea midline. Absent: lymphadenopathy - Respiratory Respiratory exam: Present: rhonchi - Cardiovascular Cardiovascular exam: Present: RRR - GI/Abdominal GI/Abdominal exam: Present: normal bowel sounds, soft. Absent: distended, tenderness - Extremities Exam Extremities exam: Absent: pedal edema - Back Exam Back exam: Absent: CVA tenderness (L), CVA tenderness (R) - Neurological Exam Neurological exam: Present: alert, oriented X3, no focal deficits, strengths equal and symetr throughout. Absent: facial droop, speech deficit - Skin Skin exam: Absent: rash Internal Medicine: Result - Labs CBC & Chem 7: 03/09/17 04:32 03/09/17 04:32 Labs: Short CBC 03/09/17 Range/Units 04:32 WBC 10.2 (4.3-11.1) K/mcL Hgb 11.4 L (12.9-16.9) g/dL Hct 36.7 L (37.5-50.1) % Plt Count 466 H (140-400) K/mcL Neutrophils # 6.9 (1.6-8.9) K/mcL BMP 03/09/17 04:32 Sodium 139 Potassium 4.3 Chloride 105 Carbon Dioxide 28 BUN 10 Creatinine 1.03 Glucose 88 Calcium 9.1 - ABG Interpretation ABG results: PT/INR, D-dimer PT 17.9 Seconds (9.4-12.1) H 03/04/17 19:37 - Impressions Impressions Chest X-Ray 03/09/17 08:29 IMPRESSION: 1. Right PICC with tip in the distal superior vena cava. 2. Stable appearance of the left lower lobe abscess. 3. No new or progressive pulmonary consolidation. D/ / 03/09/2017 09:14:29 Jacques Hernandez MD / Jennifer Vasquez Interpreting Provider: Jacques Hernandez MD Consult Discharge Plan - Plan Referrals: Richard Blanca DO [Primary Care Provider] - (Dr. Blanca's office will not make appointments for us the Patient has to call and make their own.) Aury Dhillon MD [Partnered Physician] - 03/15/17 2:00 pm Micky Rivera MD [Partnered Physician] - 04/08/17 1:00 pm
[2017-03-10] MEDS: Vancomycin 1,750 MG in D5% in Water 500 ML IVPB SCH ×2 (00:50→09:58)
[2017-03-10] MEDS: Piperacillin/Tazobactam 3.375 GM in D5% in Water (Mini-Bag+) 100 ML IVPB SCH (04:02)
[2017-03-10 05:10] LABS: Basophils # 0.1 K/mcL (0.0-0.2); Basophils % 0.4 %; Eosinophils # 0.1 K/mcL (0.0-0.6); Eosinophils % 1.2 %; Hematocrit 35.1 % (37.5-50.1); Hemoglobin 11.3 g/dL (12.9-16.9); Immature Granulocytes % 3.1 % (0-4); Lymphocytes # 1.9 K/mcL (0.6-4.6); Lymphocytes % 16.5 %; Mean Corpuscular HGB Conc 32.2 g/dL (31.6-35.5); Mean Corpuscular Hemoglobin 28.8 pg (28.0-33.3); Mean Corpuscular Volume 89.5 fL (83.0-100.0); Mean Platelet Volume 10.1 fL (9.4-12.4); Monocytes % 8.9 %; Neutrophils # 7.9 K/mcL (1.6-8.9); Platelet Count 444 K/mcL (140-400); Red Blood Count 3.92 M/mcL (4.19-5.50); Red Cell Distribution Width 14.9 % (11.5-14.5); Segmented Neutrophils % 69.9 %
--- NOTE | 2017-03-10 07:24 | Cardiothoracic Progress Note ---
Date of Encounter: 03/10/17 Time of Encounter: 07:23 - Assessment and plan (1) Lung abscess Current Visit: Yes Status: Acute The patient is to clinic improving with the intravenous antibiotic therapy. I do not believe that abscess drainage will facilitate the patient's recovery at this time. I believe that the patient should continue with his antibiotic therapy and be reassessed with serial chest x-rays as an outpatient. If the abscess does not resolve or if he develops empyema the patient will then require surgical intervention. The assessment and plan as outlined above was discussed with the patient and/or family members who expressed understanding and agreement. All questions were answered. Qualifiers: Pulmonary abscess pneumonia presence: with pneumonia Laterality: left Lung location: lower lobe of lung Qualified Code(s): J85.1 - Abscess of lung with pneumonia - Subjective Interval history: The patient is resting comfortably in his hospital bed. He has no complaints. Vital Signs, Last 4 Hours Temp Pulse Resp BP Pulse Ox 03/10/17 04:14 98.4 F 81 18 127/88 98 03/10/17 04:00 85 Oxgyen Flow Rate Oxygen Flow Rate (LPM) 0 Clinical Data, last 8 Hours Output, Urine Amount 1,000 Weight 03/08/17 03/09/17 03/10/17 23:59 23:59 23:59 Weight 95.3 kg 94.8 kg 94.8 kg - Physical Examination General: Conversant, No Apparent Distress Neck: No JVD, Normal carotid pulses Cardiac: Reg Rate and Rhythm, Normal S1 and S2, No Murmur Lungs: Normal Breath Sounds (Right lung alexander.), Decreased breath sounds (Left base.), No Wheeze, Rales, Rhonchi (Right lung alexander.) Neuro: Alert and responsive, No focal deficits noted Vascular: Normal capillary refill Musculoskeletal: No Chest Wall Tenderness Extremities: No Clubbing, No Cyanosis, No Edema, Normal Pulses - Labs 03/10/17 04:32 03/09/17 04:32 Lab Results, Last 24 hours 03/10/17 04:32 WBC 11.3 H Hgb 11.3 L Hct 35.1 L Plt Count 444 H Consult Discharge Plan - Plan Referrals: Richard Blanca DO [Primary Care Provider] - (Dr. Blanca's office will not make appointments for us the Patient has to call and make their own.) Aury Dhillon MD [Partnered Physician] - 03/15/17 2:00 pm Micky Rivera MD [Partnered Physician] - 04/08/17 1:00 pm
[2017-03-10] MEDS: levoFLOXacin 750 MG TABLET PO SCH (08:42)
--- NOTE | 2017-03-10 11:37 | Infectious Disease Progress No ---
Date of Encounter: 03/10/17 Time of Encounter: 11:35 - Assessment and Plan (1) Sepsis Status: Acute The patient had three SIRS criteria on admission. Likely secondary to PNA and lung abscess. Improved. The patient has been afebrile. Tachycardia and leukocytosis have resolved. Blood cultures drawn 03/04/17 are negative x 2 sets. Qualifiers: Sepsis type: sepsis due to unspecified organism Qualified Code(s): A41.9 - Sepsis, unspecified organism (2) Lung abscess Status: Acute Causative organism S. viridans. Final ID and sensitivity pending. Requested additional testing from [employer]. Spoke with Jenaro. States it is a slow-grower and will likely need sent out. Likely secondary to recent PNA. CXR showed increasing opacity in the inferior left hemithorax representing a combination of worsening left lower lobe pneumonia and adjacent loculated pleural disease. A small air-fluid level suggesting an abscess was noted. Developing empyema cannot be excluded. A CT of the chest was then completed that showed a large thick-walled oval- shaped abscess in the posterior inferior left hemithorax that appears to be within the parenchyma of the left lower lobe representing a lung abscess as a complication of the previously noted pneumonia. Extension into the pleural space with loculated empyema could not be excluded. Cardiothoracic surgery was consulted. Appreciate their recommendations. Surgical intervention is not indicated at this time. Recommend continued IV antibiotic therapy. Sputum culture obtained in the ER appeared contaminated. Pulmonology team was consulted. Status post bronchoscopy 03/05/17. Endoscopy for reviewed. Large amount of mucopurulent secretions and mucous plugging noted. Erythema noted to the lower lobe of the left lung mucosa. BAL sent for culture, Gram stain, and AFB. Gram stain shows few GPC, but culture interpreted as NURTF. AFB smear negative. Spoke with Jenaro in Micro and asked him to go ahead and culture out the NURTF since this is a BAL specimen --> S. viridans species isolated. Etiology of persistent PNA remains unclear. Patient has no indication of immunosuppression or history of high-risk behaviors. The patient does have a history of daily ETOH use, but denies drinking excessively to the point that he passes out that would indicate possible aspiration as a cause. Based on the large size of the abscess, concerned that IV antibiotic therapy alone will not be sufficient to adequately treat the abscess but will attempt treatment with IV antibiotics and monitor with serial chest imaging. HIV and Hepatitis profile non-reactive. S. pneumo and Legionella UAT negative. Discontinue vanc and zosyn and levaquin. Start Unasyn 3 grams IV Q6H. Duration of treatment depends on the clinical picture, but likely 4 weeks of IV antibiotics followed by orals. Continue IV antibiotics until seen by ID in follow-up. Monitor renal function and for drug toxicity and dose-adjust antibiotics. Get weekly CBC and BUN/Cr every Wednesday for the duration of treatment. Weekly PICC care per protocol. Follow up with ID 03/24/17 at 1300. Qualifiers: Pulmonary abscess pneumonia presence: with pneumonia Laterality: left Lung location: lower lobe of lung Qualified Code(s): J85.1 - Abscess of lung with pneumonia (3) Pneumonia Status: Acute Causative organism unclear. Status post bronch. Cultures are growing Strep viridans. Continues antibiotics as above. Qualifiers: Pneumonia type: due to unspecified organism Laterality: left Lung location: lower lobe of lung Qualified Code(s): J18.1 - Lobar pneumonia, unspecified organism (4) Cough with hemoptysis Status: Resolved Likely secondary to PNA. Hemoptysis resolved. Pulmonology consulted and following. (5) Anemia Status: Acute Etiology unclear. Further workup and management per the primary team. Qualifiers: Anemia type: unspecified type Qualified Code(s): D64.9 - Anemia, unspecified (6) Alcohol abuse Status: Chronic - Subjective Interval history: Patient seen and examined. No acute events noted overnight. Patient states that overall he feels much better today. Denies fevers, chills, or rigors. Denies chest pain and states his shortness of breath has resolved. He reports a cough that has been productive of mostly clear sputum with occasional rust-colored that seems worse at night. Denies nausea, vomiting, diarrhea, or constipation. Denies abdominal pain and states his appetite is good. Denies urinary complaints. Denies oral thrush or skin lesions. Infect Dis PN-Objective Data - Labs CBC & Chem 7: 03/10/17 04:32 03/09/17 04:32 Labs: Laboratory Results - last 24 hr 03/09/17 03/10/17 23:12 04:32 WBC 11.3 H RBC 3.92 L Hgb 11.3 L Hct 35.1 L MCV 89.5 MCH 28.8 MCHC 32.2 RDW 14.9 H Plt Count 444 H MPV 10.1 Immature Gran % 3.1 Seg Neutrophils % 69.9 Lymphocytes % 16.5 Monocytes % 8.9 Eosinophils % 1.2 Basophils % 0.4 Neutrophils # 7.9 Lymphocytes # 1.9 Monocytes # 1.0 Eosinophils # 0.1 Basophils # 0.1 Vancomycin Trough 15.8 Cultures: Cultures 03/05/17 14:00 Respiratory Culture - Preliminary Left Lower Lobe Lung Gram Positive Cocci 03/05/17 14:00 Gram Stain - Final Left Lower Lobe Lung 03/05/17 14:00 Respiratory Culture - Final Left Lower Lobe Lung Normal upper respiratory tract juan alberto. No apparent pathogens isolated. 03/05/17 14:00 Acid Fast Stain - Final Left Lower Lobe Lung 03/05/17 21:25 Legionella Antigen - Final Urine,Random-Not Preferred Streptococcus pneumoniae Antigen (M - Final Serology 03/06/17 03/06/17 03/05/17 Range/Units 05:09 05:09 14:00 Fluid Source LLL BAL Fluid Volume 15 mL Fluid Appearance Slightly Hazy A (Clear) Fluid RBC TNP Fld Tot Nucleated Cell TNP Fluid Seg Neutrophil % 98.0 % Fluid Basophils % 2.0 % T.pallidum Ab Interpret NEGATIVE (NEGATIVE) Hepatitis A IgM Ab Nonreactive (Nonreactive) Hep Bs Antigen Nonreactive (Nonreactive) Hep B Core IgM Ab Nonreactive (Nonreactive) Hepatitis C Ab Screen Nonreactive (Nonreactive) HIV Ag/Ab Combo Qual Nonreactive (Nonreactive) Exam - Constitutional Vitals: Temp Pulse Resp BP Pulse Ox 98.1 F 94 18 131/82 96 03/10/17 07:45 03/10/17 11:12 03/10/17 07:45 03/10/17 07:45 03/10/17 07:45 General appearance: average body habitus, cooperative, no acute distress - Head Head exam: Present: atraumatic, normal inspection, normocephalic - Eye Eye exam: Present: EOMI, normal appearance, PERRL Pupils: Present: normal accommodation - ENT ENT exam: Present: mucous membranes moist - Neck Neck exam: Present: normal inspection - Respiratory Respiratory exam: Present: CTAB. Absent: rales, respiratory distress, rhonchi, wheezes - Cardiovascular Cardiovascular exam: Present: RRR, +S1, +S2 - GI/Abdominal GI/Abdominal exam: Present: normal bowel sounds, soft. Absent: distended, tenderness - Extremities Exam Extremities exam: Present: normal inspection. Absent: joint swelling, pedal edema, tenderness - Neurological Exam Neurological exam: Present: alert, oriented X3, no focal deficits - Psychiatric Psychiatric exam: Present: normal affect, normal mood - Skin Skin exam: Present: dry, intact, normal color, warm - Additional findings Additional findings: PICC line noted to the RUE with transparent dressing C/D/I. Consult Discharge Plan - Plan Instructions: Ampicillin/Sulbactam (Injection), Sepsis (DC), Pneumonia (GEN) Referrals: Richard Blanca DO [Primary Care Provider] - (Dr. Blanca's office will not make appointments for us the Patient has to call and make their own.) Aury Dhillon MD [Partnered Physician] - 03/15/17 2:00 pm Micky Rivera MD [Partnered Physician] - 04/08/17 1:00 pm Cori Vasquez MD [Partnered Physician] - 03/24/17 1:00 pm Prescriptions: Ampicillin/Sulbactam [Unasyn] 3,000 mg IVPB Q6HR #88 vial - Attending Attestation I examined this patient and my medical decision-making was reviewed with the Resident Physician. I agree with the documented findings, disposition and treatment plan as described except to the extent set forth below.
[2017-03-10] MEDS ORDERED: Ampicillin/Sulbactam 3,000 MG in 0.9 % Sodium Chloride Mini Bag 100 ML IVPB SCH (12:00)
[2017-03-10 12:11] VITALS: BP 129/84
--- NOTE | 2017-03-10 12:26 | Discharge Summary ---
Date of Encounter: 03/10/17 Time of Encounter: 12:19 - Discharge Diagnosis (1) Sepsis Priority: Primary Status: Acute Qualifiers: Sepsis type: sepsis due to unspecified organism Qualified Code(s): A41.9 - Sepsis, unspecified organism (2) Lung abscess Priority: Primary Status: Acute Qualifiers: Pulmonary abscess pneumonia presence: with pneumonia Laterality: left Lung location: lower lobe of lung Qualified Code(s): J85.1 - Abscess of lung with pneumonia (3) Pneumonia Priority: Primary Status: Acute Qualifiers: Pneumonia type: due to unspecified organism Laterality: left Lung location: lower lobe of lung Qualified Code(s): J18.1 - Lobar pneumonia, unspecified organism (4) Anemia Priority: Primary Status: Acute Qualifiers: Anemia type: unspecified type Qualified Code(s): D64.9 - Anemia, unspecified (5) Alcohol abuse Priority: Secondary Status: Chronic - Discharge Medications Prescriptions: Ampicillin/Sulbactam [Unasyn] 3,000 mg IVPB Q6HR #88 vial Home Medications: Ampicillin/Sulbactam [Unasyn] 3,000 mg IVPB Q6HR #88 vial 03/10/17 [Rx] Allergies/Adverse Reactions: Allergies Sulfa (Sulfonamide Antibiotics) Allergy (Verified 03/04/17 18:47) Hives Date of admission: 03/04/17 22:51 Primary care physician: Richard Blanca Consults: 03/04/17 23:43 Consult to Cardiothoracic Surgery [CONS] Routine Consulting Provider: Cardiothoracic Surgery Paige Reason for Consult: lung abscess, possible loculated empyema; evaluate for chest tube placement Call Completed: Yes 03/05/17 09:38 Consult to Pulmonology [CONS] Routine Consulting Provider: Pulm [facility] Paige Reason for Consult: Empyema Call Completed: Yes 03/05/17 11:08 Consult to Infectious Diseases [CONS] Routine Consulting Provider: Infectious Disease [employer] Reason for Consult: lung abscess Call Completed: Yes 03/07/17 13:03 Consult to [employer] [CONS] Routine Reason for SW Consult: Iv antibiotics at home 03/08/17 12:24 Consult to Invasive Line Access Team [CONS] Routine Reason for Consult: Home ATB therapy Line Type: EPIV PICC line indications: correction Med/Antibiotic Time Notified: 12:26 Call Completed: Yes 03/08/17 16:03 Consult to Invasive Line Access Team [CONS] Routine Reason for Consult: Picc Line Insertion Line Type: PICC - Patient Status Disposition: Home Health Service Condition: Good Functional capacity at discharge: independent ambulation Overall status at discharge: patient is progressing back to baseline - Discharge Instructions Instructions: Ampicillin/Sulbactam (Injection), Sepsis (DC), Pneumonia (GEN) Follow Up With: Richard Blanca DO [Primary Care Provider] - (Dr. Blanca's office will not make appointments for us the Patient has to call and make their own.) Aury Dhillon MD [Partnered Physician] - 03/15/17 2:00 pm Micky Rivera MD [Partnered Physician] - 04/08/17 1:00 pm Cori Vasquez MD [Partnered Physician] - 03/24/17 1:00 pm - Diet and Activity Activity: resume usual activities as tolerated Diet: regular diet Interval History: Patient has no complaints. He still has yellowish productive cough. Hospital course: Mr. Mccord is a 41 year old male with past medical history of alcohol abuse who was diagnosed of CAP 5 weeks ago, and completed a seven-day course of levaquin. He was doing fine until the day prior to admission when he developed hemoptysis and yellowish sputum. In our ED, temp was 103, hr 118, wbc 17. CT chest shows a large thick walled oval-shaped abscess in the posteroinferior left hemithorax. Patient denies any recent travel, no tobacco use, no sick contacts. 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 03/05 Patient underwent bronchoscopy revealing copious mucus plugging and mucopurulent secretions in the left lower lobe, BAL performed, suspicious left lower lobe airway lesion status post brushings. He was started on empiric antibiotics including IV vancomycin, Zosyn and Levaquin with clinical improvement. BAL cultures were negative. PLAN: Unasyn for 4 weeks. Weekly CBC, BUN/creatinine and creatinine every Wednesday. - Time Spent with Patient Total time spent providing and/or coordinating discharge services: - Constitutional Vitals: Temp Pulse Resp BP Pulse Ox 98.1 F 88 20 129/84 99 03/10/17 12:04 03/10/17 12:04 03/10/17 07:45 03/10/17 12:04 03/10/17 12:04 General appearance: Present: cooperative, A&O X 3, pleasant, no acute distress, answers questions appropriately - Eye Eye exam: Present: PERRL, sclera anicteric - Neck Neck exam general surgery: Present: supple, trachea midline. Absent: lymphadenopathy - Respiratory Respiratory exam: Present: rhonchi - Cardiovascular Cardiovascular exam: Present: RRR - GI/Abdominal GI/Abdominal exam: Present: normal bowel sounds, soft. Absent: distended, tenderness - Extremities Exam Extremities exam: Absent: pedal edema - Back Exam Back exam: Absent: CVA tenderness (L), CVA tenderness (R) - Neurological Exam Neurological exam: Present: alert, oriented X3, no focal deficits, strengths equal and symetr throughout. Absent: facial droop, speech deficit - Skin Skin exam: Absent: rash
[2017-03-10] MEDS ORDERED: Aminoglycoside Consult 1 EACH MC ONE (13:41)
--- NOTE | 2017-03-10 18:55 | Physician Discharge Referral ---
Home Health/Hosp Referral Info Transfer to: Home Health Attending Provider: monty Provider in Charge Post Discharge: PCP - Diagnosis (1) Sepsis Status: Acute (2) Lung abscess Status: Acute (3) Pneumonia Status: Acute (4) Anemia Status: Acute (5) Alcohol abuse Status: Chronic - Respiratory Orders Smoking Cessation: Smoking cessation has been advised. For more information, call the [employer] Quit Line at 7-009-IWUA-NOW. - Services Needed Following services are medically necessary services: Home Infusion Other Treatments: weekly CBC and BUN/Cr every Wednesday for the duration of IV antibiotics - Transfer Medications Prescriptions: Ampicillin/Sulbactam [Unasyn] 3,000 mg IVPB Q6HR #88 vial Home Medications: Ampicillin/Sulbactam [Unasyn] 3,000 mg IVPB Q6HR #88 vial 03/10/17 [Rx] Allergies/Adverse Reactions: Allergies Sulfa (Sulfonamide Antibiotics) Allergy (Verified 03/04/17 18:47) Hives Certification: Further, I certify that my clinical findings support that this patient is homebound (i.e. absences from home require considerable and taxing effort and are for medical reasons or [employer] or infrequently or short duration when for other reasons) because: Homebound Reason: Patient requires assistance of a person or device to safely leave home, Leaving home requires considerable and taxing effort due to condition Attestation: My signature below is to certify that this patient is under my care and that I, or nurse practitioner, or a physician's family practice physician assistant working with me, has a face-to -face encounter with this patient.
== END 2017-03-10 13:42 | disposition home health service (06) | DRG 853 ==
LOC: EMEROO 18:08 → 2NNU 22:51
PROVIDERS: ADMIT Pediatrics; ATTEND Internal Medicine